=== PATIENT | male | born 1940 | race Caucasian/White ===

== ENCOUNTER 2017-01-14 14:17 | Emergency (ER) | payer MEDICARE, MEDICAID ==
[2017-01-14 14:31] VITALS: BP 126/52
--- OUTSIDE RECORDS SUMMARY | 2017-01-14 15:00 | XMS REPORT | Continuity of Care Document ---
:1940 Author Organization [facility] ([facility]) Address [address] [place] [address] Phone [phone] Care Team Providers Name Role Phone Toni Anderson Primary Care Provider [phone] Source Comments This disclosure is being made pursuant to the Care Everywhere program, applicable federal and state laws, and may not contain all informaitonavailable regarding this patient.[facility] ([facility]) Active Allergies and Adverse Reactions No Known Allergies Current Medications Prescription Sig. Disp. 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 CARDIOVASCULAR PROCEDURES ECHO/MUGA: Echo (Normal EF, Normal Valves) - 08/24/2011 STRESS TESTS: Marcin MPI (EF.51, Large Inferior Scar) - 08/24/2011 S/P AAA repair using bifurcation graft Overview: Formatting of this note may be different from the original. VASCULAR: Carotid Duplex (The Doppler flow velocities within the right internal carotid artery are elevated, consistent with a 50-69% stenosis. The left internal carotid artery is occluded ) - 08/27/2011 Abdominal Ao CTA (stent graft no aneurysm) - 08/27/2011 Carotid Duplex (Moderate Disease in Left ICA, Occluded Right ICA, Vertebral: Bilateral Antegrade Flow, No change from previous study) - 09/17/2012 Hyperlipidemia Hypertension Carotid artery disease Overview: occluded LICA Iliac aneurysm CT (myocardial infarction) Stroke Resolved Problems Problem Noted Date Resolved Date Carotid artery disease 11/10/2015 Most Recent Encounters Date Type Specialty Providers Description 01/10/2017 Office Visit [facility] Carroll Nguyen, Chief Comp: Patient MD Reported Reason For Visit 12/18/2016 Office Visit [facility] Shasha Bullock ARNP Dx: Bilateral carotid artery disease (Primary Dx) 10/16/2016 Office Visit [facility] Lana Cain MD Dx: Hx of CABG (Primary Dx) Immunizations Name Dates Previously Given Next Due Influenza 08/01/2015,07/27/2014,04/23/2013 Pneumococcal Conjugate, PCV13 (Prevnar 13) 08/01/2015 Td, adsorbed 04/23/2013 Social History Tobacco Use Types Packs/Day Years Used Date Current Every Day Smoker Cigarettes 1 Smokeless Tobacco: Never Used Tobacco Cessation:Ready to Quit: No; Counseling Given: Yes Comments: Last Filed Vital Signs Vital Sign Reading Time Taken Blood Pressure 140/80 12/18/2016 10:02 AM CDT Pulse 50 12/18/2016 10:02 AM CDT Temperature 35.1 C (95.2 F) 07/12/2016 2:36 PM CDT Respiratory Rate - - Height 1.829 m (6') 12/18/2016 10:02 AM CDT Weight 82.101 kg (181 lb) 12/18/2016 10:02 AM CDT Body Mass Index 24.54 12/18/2016 10:02 AM CDT Oxygen Saturation - - Plan of Care Date Type Specialty Providers Description 01/18/2017 Appointment [facility] V[facility] Default, Other Billg Chief Comp: Patient - Defo Reported Reason For [address] [place] [address] [phone] (Fax) 07/02/2017 Appointment [facility] Shasha Bullock ARNP Chief Comp: Patient [address] [place] [address] Visit [phone] (Fax) 10/10/2017 Appointment [facility] Lana Cain MD Chief Comp: Patient [address] [place] [address] Visit [phone] (Fax) Health Maintenance Due Date Last Done Comments Hepatitis B Vaccine (1 of 3 - Primary 1940 Series) Tdap Vaccine 1951 Lipid Disorder Screening 1957 Colonoscopy 02/09/1989 Zoster Vaccine 1999 Influenza Vaccine: Seasonal (#1) 05/07/2016 08/01/2015, 07/27/2014, 04/23/2013 Pneumococcal Vaccine (2 of 2 - 08/01/2016 08/01/2015 PPSV23) Td Vaccine 04/23/2023 04/23/2013 Results from Last 3 Months Not on file
--- NOTE | 2017-01-14 15:06 | ERNOTE ---
Lower Extremity HPI - Narrative Date of Service: 01/14/17 - General Lower Extremities Pain: leg: left Time Seen by Provider: 01/14/17 14:52 Source: patient, family, RN notes reviewed Exam Limitations: dementia - Immun/Allergies/Home Medications Immunizations: IMMUNIZATION HX Immunizations Up to Date Yes History of Influenza Vaccine Yes Hx Pneumococcal Vaccination Yes Allergies/Adverse Reactions: Allergies Allergy/AdvReac Type Severity Reaction Status Date / Time No Known Allergies Allergy Verified 01/14/17 14:31 Home Medications: HOME MEDICATIONS Albuterol Sulfate [Proair Hfa] 1 - 2 puff IH Q6H PRN 08/20/13 [Last Taken 20:00] Lisinopril 10 mg PO DAILY 08/20/13 [Last Taken 03/13/15 20:00] Metoprolol Tartrate [Lopressor] 12.5 mg PO DAILY 08/20/13 [Last Taken 03/13/15 20:00] Pravastatin Sodium 20 mg PO HS 08/20/13 [Last Taken 03/13/15 20:00] Sertraline HCl 100 mg PO DAILY 08/20/13 [Last Taken 03/13/15 20:00] Aspirin 81 mg PO DAILY 02/14/16 [Last Taken Unknown] Cephalexin 500 mg PO TID #30 tab 01/14/17 [Last Taken Unknown] - History of Present Illness Narrative: 76 y/o male brought to the ED by a family member for redness and pain in his left leg after being scratched by his cat 2 days ago. This involved the lateral and posterior aspects of the knee. He was also scratched on the lower leg today. This has not become red and is not as painful as the area near the knee. They have been cleaning the wounds with peroxide and applying antibiotic ointment. Date (Duration): 01/12/17 Location of Incident: home Reason for Fall: Reports: other Modifying Factors - (Improves): Denies: rest Modifying Factors - (Worsens): Reports: other - weight bearing and palpation Other Injuries: Reports: none Prior Treament: Denies: recently seen, similar symptoms before Review of Systems - Review of Systems Constitutional: Absent: fever, chills, malaise EYE: Present: no symptoms reported ENT: Present: no symptoms reported Respiratory: Present: no symptoms reported Cardiology: Present: no symptoms reported Gastrointestinal/Abdominal: Absent: nausea, vomiting Genitourinary: Present: no symptoms reported Musculoskeletal: Absent: joint pain, joint swelling Skin: Present: lesions, change in color. Absent: rash, lumps Neurological: Absent: headache, dizziness/light-headedness, weakness, numbness, tingling Endocrine: Present: no symptoms reported Hematologic/Lymphatic: Present: no symptoms reported Psych: Present: other - poor memory (dementia) - Patient's Past Medical History Patient History - Medical: Cataracts, Depression, Other Patient History - Cardiac/Respiratory: Coronary Heart Disease, COPD, CVA/Stroke , Hypertension, Hyperlipidemia, Myocardial Infarction Patient History - Cancer: No Hx of Cancer Patient History - Surgical Procedures: Colonoscopy, Coronary Bypass Surgery, Cardiac stent Patient History - Other: None - Family History Mother Family History - Medical: History Unknown Family History - Cardiac/Respiratory: History Unknown - Social History Living Situations: alone Abuse History: No History of abuse Psych History: Hx of Depression, Current tx/ever been on anti-depressants or anti-anxiety meds Smoking Status: Current every day smoker Have you smoked in the past 12 months: Yes Alcohol Use: none Drug Use: none - Immunizations Immunizations Up to Date: Yes - tetanus in 2016 Hx Pneumococcal Vaccination: Yes History of Influenza Vaccine: Yes Physical Exam - Physical Exam General Appearance: Present: wd/wn, alert, no apparent distress Respiratory: Present: no respiratory distress, normal breath sounds, no accessory muscle use, lungs clear Cardiovascular/Chest: Present: regular rate, rhythm, no murmur, normal peripheral pulses Extremity Exam: Present: normal range of motion, extremity edema - mild to left leg at lateral and posterior aspects of the knee, the joint itself is not edematous. Absent: pedal edema, joint swelling Neurological Exam: Present: alert, oriented, normal mood/affect, no motor/ sensory deficits Skin Exam: Present: warm/dry, other - several small abrasions consistent with cat scratches to left lateral and posterior knee and anterior lower leg, redness and warmth surrounding the wounds near the knee, chronic venous stasis skin changes of both lower legs ED Progress - Vital Signs Patient's Vital Signs:: I have reviewed the patient's vital signs. Vital Signs: Vital Signs 01/14/17 14:22 Temperature 36.6 C Pulse Rate 76 Respiratory 14 Rate Blood Pressure 126/52 O2 Sat by Pulse 96 Oximetry - Progress/Reassessment Chief Complaint: Lower Extremity Pain/ Injury Progress:: Unchanged Plan - Plan Plan: Antibiotics initiated in department with IM Rocephin. Rx given for cephalexin - to start this later this evening. Departure Clinical Impression: Cat scratch of left lower leg Qualifiers: Encounter type: initial encounter Qualified Code(s): S80.812A - Abrasion, left lower leg, initial encounter Cellulitis Qualifiers: Site of cellulitis: extremity Site of cellulitis of extremity: lower extremity Laterality: left Qualified Code(s): L03.116 - Cellulitis of left lower limb - Departure Disposition: Home Follow Up Needed Condition: Good Instructions: Cellulitis, Adult, [id number] Additional Instructions: Elevate leg and use warm moist heat Tylenol for pain Return for fever, vomiting, worsening pain or other symptoms Referrals: Toni Anderson MD [Primary Care Provider] - Prescriptions: Cephalexin 500 mg PO TID #30 tab
== END 2017-01-14 15:50 | disposition home or self-care (01) ==
LOC: ER 14:17
DX: S80.812A Abrasion, left lower leg, initial encounter (principal); L03.116 Cellulitis of left lower limb; F17.210 Nicotine dependence, cigarettes, uncomplicated; W55.03XA Scratched by cat, initial encounter; Y92.009 Unspecified place in unspecified non-institutional (private) residence as the place of occurrence of the external cause; I10 Essential (primary) hypertension; F32.9 Major depressive disorder, single episode, unspecified; E78.5 Hyperlipidemia, unspecified; I50.9 Heart failure, unspecified; J44.9 Chronic obstructive pulmonary disease, unspecified; I25.2 Old myocardial infarction

== ENCOUNTER 2021-01-31 13:26 | Inpatient (IN) ==
--- NOTE | 2021-01-31 14:30 | ERNOTE ---
Trauma/Assault HPI - Narrative Date of Service: 01/31/21 - General Stated Complaint: Fall right side pain Time Seen by Provider: 01/31/21 17:32 Source: patient Exam Limitations: no limitations - Immun/Allergies/Home Medications Immunizations: IMMUNIZATION HX Immunizations Up to Date Yes History of Influenza Vaccine Yes Hx Pneumococcal Vaccination Yes Allergies/Adverse Reactions: Allergies No Known Allergies Allergy (Verified 01/31/21 13:38) Home Medications: HOME MEDICATIONS Aspirin 81 mg PO DAILY 02/14/16 [Last Taken Unknown] lisinopril 10 mg tablet 10 mg PO DAILY #30 tab 11/09/20 [Last Taken Unknown] metoprolol tartrate 25 mg tablet 12.5 mg PO DAILY #15 tab 11/09/20 [Last Taken Unknown] pravastatin 20 mg tablet 20 mg PO HS #30 tab 11/09/20 [Last Taken Unknown] sertraline 100 mg tablet 100 mg PO DAILY #30 tab 11/09/20 [Last Taken Unknown] - History of Present Illness Date (Duration): 01/31/21 Time (Timing): 12:00 Narrative: Daughter brings parent 10 for altered mental status. Daughter went to visit patient today and patient was laying in bed on the close on confused unusual for him. Patient has had strokes in the past and the family was concerned that maybe he had another stroke. Nothing seems to make it better nothing seems to make it worse. Patient does feel warm but denies any fever or chills patient is somewhat confused today which is not normal for him. Location Occurred: Reports: home Pain Location: Reports: none Severity: mild, moderate Modifying Factors - (Worsens): Reports: cold therapy Loss of Consciousness: Reports: no loss of consciousness Associated Symptoms - Trauma: Reports: denies symptoms Review of Systems - Review of Systems Constitutional: Present: no symptoms reported EYE: Present: no symptoms reported ENT: Present: no symptoms reported Respiratory: Present: no symptoms reported Cardiology: Present: no symptoms reported Gastrointestinal/Abdominal: Present: no symptoms reported Genitourinary: Present: no symptoms reported Musculoskeletal: Present: muscle stiffness Skin: Present: no symptoms reported Neurological: Present: no symptoms reported Medical History (Last Reviewed 01/31/21 @ 17:36 by Kennedy Pyle DO) Infected cut of finger (Acute) left index finger Weight loss of more than 10% body weight (Acute) He is lost at least 15 pounds over the past 2 months and has lost about 5 pounds the last week. Abdominal mass, right lower quadrant (Acute) Hypertension (Chronic) COPD (chronic obstructive pulmonary disease) (Chronic) Anxiety (Chronic) Depression (Chronic) CAD (coronary artery disease) (Chronic) CVA (cerebral vascular accident) (Chronic) AAA (abdominal aortic aneurysm) (Chronic) Cataract cataract surgery of bilateral eyes Hernia of abdominal wall Male circumcision repaired as an adult Surgical History: Surgical History (Last Reviewed 01/31/21 @ 17:36 by Kennedy Pyle DO) H/O hernia repair S/P AAA repair Family History: Family History (Last Reviewed 01/31/21 @ 17:36 by Kennedy Pyle DO) Brother , 2 brothers AAA AAA (abdominal aortic aneurysm) Mother Old age Father Old age Social History: (Last Reviewed 01/31/21 @ 17:36 by Kennedy Pyle DO) Social History: chcf: No Marital status: / lives independently: Yes household members: none current occupational status: retired Highest level of school completed/degree received: high school graduate Service: No Tobacco: Smoking Status: Current every day smoker tobacco type: cigarettes Smoking cigarettes per day: 20.0 Smoking packs per day: 1 Alcohol: alcohol intake: current Alcohol type: beer alcohol intake frequency: holiday/special occasion Substance Use: substance use type: does not use Dietary Habits: caffeine: Yes Physical Exam - Physical Exam General Appearance: Present: no apparent distress Head Exam: Present: normal inspection, no evidence of injury Eye Exam: Normal inspection: bilateral, PERRL: bilateral, EOMI: bilateral Ears, Nose, Throat: Present: normal ENT inspection Neck: Present: normal inspection, nontender Respiratory: Present: no respiratory distress, normal breath sounds Cardiovascular/Chest: Present: regular rate, rhythm, no murmur, normal peripheral pulses Peripheral Pulses: N=norm/S=strong/W=weak/B=bound/A=absent: Carotid (R): Normal, Carotid (L): Normal, Radial (R): Normal Gastrointestinal/Abdominal: Present: normal bowel sounds, nontender, nondistended, soft, no organomegaly Back Exam: Present: normal inspection, normal range of motion Extremity Exam: Present: normal inspection, normal range of motion, no edema Neurological Exam: Present: alert, oriented, normal mood/affect, no motor/sensory deficits Skin Exam: Present: normal color, warm/dry Lymphatic Exam: Present: no adenopathy Detailed Trauma Exam Best Eye Response (Gwen): (4) open spontaneously Best Verbal Response (Gwen): (4) confused conversation Best Motor Response (Gwen): (6) obeys commands [place] Total: 14 General Appearance: Present: no acute distress Neurological Exam: Present: oriented x 4 Progress - Results and Orders Patient's Lab Results:: I have reviewed the patient's lab results. - Vital Signs Patient's Vital Signs:: I have reviewed the patient's vital signs. Vital Signs: Vital Signs 01/31/21 13:34 Temperature 36.8 C Pulse Rate 101 H Respiratory Rate 14 Blood Pressure 112/56 O2 Sat by Pulse Oximetry 97 - Progress/Reassessment Chief Complaint: Fall Departure Clinical Impression: Urinary tract infection - Departure Disposition: Still a patient Condition: Good Critical Care Time - Critical Care Critical Time Spent:: Yes
[2021-01-31 14:49] LABS: Hematocrit 34.2 % (42.0-52.0); Hemoglobin 11.4 gm/dL (13.5-18.0); Mean Corpuscular Hemoglobin 31.7 pg (27-31); Mean Corpuscular Hgb Conc 33.3 g/dl (32-36); Mean Platelet Volume 8.5 fl (8-11.3); Platelet Count 183 K/mm3 (150-450); Red Cell Distribution Width 12.5 % (11.5-14.0); White Blood Count 29.5 K/mm3 (4.0-10.5)
[2021-01-31 14:57] LABS: Total Cells Counted 100
[2021-01-31 15:03] LABS: Prothrombin Time (Patient) 15.4 Seconds (9.1-10.7)
[2021-01-31 15:05] LABS: INR 1.51 INR (0.92-1.08)
[2021-01-31 15:07] LABS: Albumin * 2.6 gm/dl (3.4-5.0); Anion Gap 13.3 mmol/L (6.8-13.8); BUN/Creatinine Ratio 17.9 (9.0-21.6); Bilirubin, Total 0.6 mg/dL (0.0-1.1); Ca. Corrected For Albumin 8.7 mg/dL (8.4-10.2); Calcium * 7.9 mg/dL (7.9-10.9); Carbon Dioxide 24.5 mmol/L (24-32.6); Potassium 3.8 mmol/L (3.4-4.6); Total Protein 6.7 gm/dL (6.2-8.2)
[2021-01-31 15:16] LABS: Band 11 % (0-2.0); Lymphocyte 4 % (20-51); Monocyte 1 % (0-9); Neutrophil 84 % (42-75); Neutrophil # 24.8 K/mm3 (1.3-6.0)
[2021-01-31 15:18] LABS: Platelet Estimate Normal (NORMAL); RBC Morphology Normal (NORMAL)
[2021-01-31 16:00] LABS: Urine Bilirubin 1 mg/dl (NEGATIVE); Urine Blood 250 /ul (NEGATIVE); Urine Ketone Negative (NEGATIVE); Urine Protein 100 mg/dL (NEGATIVE); Urine Specific Gravity >=1.030 SP.GR. (1.005-1.030); Urine Urobilinogen Normal (NORMAL)
[2021-01-31 16:12] LABS: Urine Appearance Cloudy (CLEAR); Urine Color Dark Yellow; Urine Nitrite Positive (NEGATIVE)
[2021-01-31 16:13] LABS: Urine Bacteria 4+
[2021-01-31] MEDS ORDERED: cefTRIAXone SODIUM 2,000 MG/100 ML BAG IV ONE (16:17)
[2021-01-31] MEDS ORDERED: NORMAL SALINE 1,000 ML IV PRN (16:39)
[2021-01-31] MEDS ORDERED: ACETAMINOPHEN 1,000 MG/100 ML BTL IV ONE (18:30)
[2021-01-31] MEDS ORDERED: ONDANSETRON HCL/PF 2 MG/ML VIAL IV ONE (18:31)
[2021-01-31] MEDS ORDERED: ONDANSETRON HCL/PF 2 MG/ML VIAL ONE (18:32)
[2021-01-31] MEDS ORDERED: ACETAMINOPHEN 325 MG TABLET PO PRN (18:38)
[2021-01-31] MEDS ORDERED: ONDANSETRON HCL/PF 2 MG/ML VIAL IV PRN (18:38)
[2021-01-31] MEDS: NORMAL SALINE 1,000 ML IV SCH (20:18)
[2021-01-31] MEDS: SIMVASTATIN 10 MG TABLET PO SCH (21:01)
[2021-01-31] MEDS: VANCOMYCIN HCL 1 GM in DEXTROSE 5 % IN WATER 250 ML IV SCH ×2 (21:02)
--- NOTE | 2021-01-31 23:54 | HP ---
Chief Complaint - Chief Complaint Date of Service: 01/31/21 Time of Service: 18:35 Chief Complaint: Altered mental status, leukocytosis, febrile History of Present Illness: 80-year-old male with history of CVA and mild cognitive deficits, CAD, COPD, depression presented to the ER with his daughter after being found altered in his home. Initial lab work showed him to have a white count of 29.5 which was normal on 01/13/2021 at 8.7. Patient had an elevated creatinine from baseline at 1.84 and a GFR 38. Patient lactic acid was positive at 2.9. Patient's procalcitonin came back at 2.26. Patient's urine was positive for nitrates and leukocyte esterase. Urine cultures and blood cultures pending. Due to altered mentation patient had head CT which showed likely chronic fairly extensive left- sided infarcts, atrophy, and white matter microvascular ischemic disease which are likely at baseline from previous CVA. Patient has no other neurological deficits aside from being altered. Abdominal CT scan had benign findings but nothing to account for any issues days currently having or any acute processes. Chest x-ray showed no acute cardiopulmonary issues. Patient initially was febrile in the ER and he had an elevated pulse at 101. His blood pressure and respirations and oxygen saturations have all been within normal limits though. Patient was given a dose of Rocephin and vancomycin and admitted to the floor under observation for altered mental status secondary to UTI. Patient is septic but is otherwise maintaining pressures. Concern for bacteremia. Otherwise patient feels well and is very pleasantly confused. Medical History (Last Reviewed 01/31/21 @ 19:48 by Tea Crespo RN) Infected cut of finger (Acute) left index finger Weight loss of more than 10% body weight (Acute) He is lost at least 15 pounds over the past 2 months and has lost about 5 pounds the last week. Abdominal mass, right lower quadrant (Acute) Hypertension (Chronic) COPD (chronic obstructive pulmonary disease) (Chronic) Anxiety (Chronic) Depression (Chronic) CAD (coronary artery disease) (Chronic) CVA (cerebral vascular accident) (Chronic) AAA (abdominal aortic aneurysm) (Chronic) Cataract cataract surgery of bilateral eyes Hernia of abdominal wall Male circumcision repaired as an adult Surgical History: Surgical History (Last Reviewed 01/31/21 @ 19:48 by Tea Crespo RN) H/O hernia repair S/P AAA repair Family History: Family History (Last Reviewed 01/31/21 @ 19:48 by Tea Crespo RN) Brother , 2 brothers AAA AAA (abdominal aortic aneurysm) Mother Old age Father Old age Social History: (Last Reviewed 01/31/21 @ 19:49 by Tea Crespo RN) Social History: retirement: No Marital status: / lives independently: Yes household members: none current occupational status: retired Highest level of school completed/degree received: high school graduate Service: No Tobacco: Smoking Status: Current every day smoker tobacco type: cigarettes Smoking cigarettes per day: 20.0 Smoking packs per day: 1 Alcohol: alcohol intake: current Alcohol type: beer alcohol intake frequency: holiday/special occasion Substance Use: substance use type: does not use Dietary Habits: caffeine: Yes Review Of Systems (GEN) - Review of Systems Additional Comments: Patient denies any issues (negative review of systems) whatsoever, unsure of how much he is able to cognitively understand questioning. Immunizations: IMMUNIZATION HX Immunizations Up to Date Yes History of Influenza Vaccine Yes Hx Pneumococcal Vaccination Yes Allergies/Adverse Reactions: Allergies Allergy/AdvReac Type Severity Reaction Status Date / Time No Known Allergies Allergy Verified 01/31/21 13:38 Home Medications: HOME MEDICATIONS Aspirin 81 mg PO DAILY 02/14/16 [Last Taken Unknown] lisinopril 10 mg tablet 10 mg PO DAILY #30 tab 11/09/20 [Last Taken Unknown] metoprolol tartrate 25 mg tablet 12.5 mg PO DAILY #15 tab 11/09/20 [Last Taken Unknown] pravastatin 20 mg tablet 20 mg PO HS #30 tab 11/09/20 [Last Taken Unknown] sertraline 100 mg tablet 100 mg PO DAILY #30 tab 11/09/20 [Last Taken Unknown] Exam - Exam Vital Signs: Vital Signs - Last Taken Temp 37.0 C 01/31/21 22:57 Pulse 68 01/31/21 22:57 Resp 18 01/31/21 22:57 BP 110/47 01/31/21 22:57 Pulse Ox 94 01/31/21 22:57 Constitutional: Present: Alert, No distress, Elderly. Absent: Oriented x3 - X2 ENT Exam: Present: hard of hearing Eye Exam: bilateral eye: normal inspection Neck: Present: non-tender, supple Back Exam: Present: no CVA tenderness Respiratory: Present: lungs clear, normal breath sounds Cardiovascular/Chest: Present: regular rate, rhythm, no murmur Peripheral Pulses: dorsalis-pedis (R): 2+, dorsalis-pedis (L): 2+ Abdomen: Present: soft, nontender, nondistended. Absent: tender, guarding, rigidity, rebound tenderness, CVA tenderness, suprapubic tenderness Extremity: Present: non-tender, normal capillary refill. Absent: lower extremity edema Skin Exam: Present: diaphoresis. Absent: mottled, pallor Neurologic: Absent: facial droop, motor weakness, sensory deficit Appearance: Present: impaired insight, impaired recent memory Eye contact: Present: cooperative, good eye contact, normal speech Thoughts: Present: normal thought pattern, normal mood /affect Diagnostic Studies: Abnormal Lab Results 01/31/21 01/31/21 01/31/21 Range/Units 14:35 14:35 14:35 WBC 29.5 H (4.0-10.5) K/mm3 RBC 3.60 L (4.7-6.0) M/mm3 Hgb 11.4 L (13.5-18.0) gm/dL Hct 34.2 L (42.0-52.0) % MCH 31.7 H (27-31) pg Neutrophils % (Manual) 84 H (42-75) % Band Neuts % (Manual) 11 H (0-2.0) % Lymphocytes % (Manual) 4 L (20-51) % Neutrophils # (Manual) 24.8 H (1.3-6.0) K/mm3 Lymphocytes # (Manual) 1.2 L (1.5-3.5) k/mm3 ESR 81 H (0-10) mm/hr PT (9.1-10.7) Seconds INR (Anticoag Therapy) (0.92-1.08) INR BUN 33 H D (6-23) mg/dL Creatinine 1.84 H D (0.4-1.4) mg/dL Est GFR (Non-Af Amer) 38 L D (60-130) mL/min Random Glucose 185 H (70-110) mg/dL Lactic Acid, Venous (0.4-2.0) mmol/L ALT 18 L (19-67) U/L Albumin 2.6 L (3.4-5.0) gm/dl Procalcitonin (0.05-0.50) ng/mL Urine Protein (NEGATIVE) mg/dL Urine Blood (NEGATIVE) /ul Urine Nitrate (NEGATIVE) Urine Bilirubin (NEGATIVE) mg/dl Ur Leukocyte Esterase (NEGATIVE) /ul Urine RBC (0-5) /hpf Urine WBC (0-5) /hpf Urine Bacteria (NONE) 01/31/21 01/31/21 01/31/21 Range/Units 14:35 14:35 14:35 WBC (4.0-10.5) K/mm3 RBC (4.7-6.0) M/mm3 Hgb (13.5-18.0) gm/dL Hct (42.0-52.0) % MCH (27-31) pg Neutrophils % (Manual) (42-75) % Band Neuts % (Manual) (0-2.0) % Lymphocytes % (Manual) (20-51) % Neutrophils # (Manual) (1.3-6.0) K/mm3 Lymphocytes # (Manual) (1.5-3.5) k/mm3 ESR (0-10) mm/hr PT 15.4 H (9.1-10.7) Seconds INR (Anticoag Therapy) 1.51 H (0.92-1.08) INR BUN (6-23) mg/dL Creatinine (0.4-1.4) mg/dL Est GFR (Non-Af Amer) (60-130) mL/min Random Glucose (70-110) mg/dL Lactic Acid, Venous 2.9 H* (0.4-2.0) mmol/L ALT (19-67) U/L Albumin (3.4-5.0) gm/dl Procalcitonin 2.26 H (0.05-0.50) ng/mL Urine Protein (NEGATIVE) mg/dL Urine Blood (NEGATIVE) /ul Urine Nitrate (NEGATIVE) Urine Bilirubin (NEGATIVE) mg/dl Ur Leukocyte Esterase (NEGATIVE) /ul Urine RBC (0-5) /hpf Urine WBC (0-5) /hpf Urine Bacteria (NONE) 01/31/21 01/31/21 Range/Units 15:20 17:00 WBC (4.0-10.5) K/mm3 RBC (4.7-6.0) M/mm3 Hgb (13.5-18.0) gm/dL Hct (42.0-52.0) % MCH (27-31) pg Neutrophils % (Manual) (42-75) % Band Neuts % (Manual) (0-2.0) % Lymphocytes % (Manual) (20-51) % Neutrophils # (Manual) (1.3-6.0) K/mm3 Lymphocytes # (Manual) (1.5-3.5) k/mm3 ESR (0-10) mm/hr PT (9.1-10.7) Seconds INR (Anticoag Therapy) (0.92-1.08) INR BUN (6-23) mg/dL Creatinine (0.4-1.4) mg/dL Est GFR (Non-Af Amer) (60-130) mL/min Random Glucose (70-110) mg/dL Lactic Acid, Venous 2.4 H* (0.4-2.0) mmol/L ALT (19-67) U/L Albumin (3.4-5.0) gm/dl Procalcitonin (0.05-0.50) ng/mL Urine Protein 100 H (NEGATIVE) mg/dL Urine Blood 250 H (NEGATIVE) /ul Urine Nitrate Positive H (NEGATIVE) Urine Bilirubin 1 H (NEGATIVE) mg/dl Ur Leukocyte Esterase 75 H (NEGATIVE) /ul Urine RBC 10-25 H (0-5) /hpf Urine WBC 5-10 H (0-5) /hpf Urine Bacteria 4+ H (NONE) Laboratory Results WBC 29.5 K/mm3 (4.0-10.5) H 01/31/21 14:35 RBC 3.60 M/mm3 (4.7-6.0) L 01/31/21 14:35 Hgb 11.4 gm/dL (13.5-18.0) L 01/31/21 14:35 Hct 34.2 % (42.0-52.0) L 01/31/21 14:35 MCV 95.0 fl (78-100) 01/31/21 14:35 MCH 31.7 pg (27-31) H 01/31/21 14:35 MCHC 33.3 g/dl (32-36) 01/31/21 14:35 RDW 12.5 % (11.5-14.0) 01/31/21 14:35 Plt Count 183 K/mm3 (150-450) 01/31/21 14:35 MPV 8.5 fl (8-11.3) 01/31/21 14:35 Neutrophils % (Manual) 84 % (42-75) H 01/31/21 14:35 Band Neuts % (Manual) 11 % (0-2.0) H 01/31/21 14:35 Lymphocytes % (Manual) 4 % (20-51) L 01/31/21 14:35 Monocytes % (Manual) 1 % (0-9) 01/31/21 14:35 Neutrophils # (Manual) 24.8 K/mm3 (1.3-6.0) H 01/31/21 14:35 Lymphocytes # (Manual) 1.2 k/mm3 (1.5-3.5) L 01/31/21 14:35 Monocytes # (Manual) 0.3 k/mm3 (0.0-1.0) 01/31/21 14:35 Platelet Estimate Normal (NORMAL) 01/31/21 14:35 RBC Morphology Normal (NORMAL) 01/31/21 14:35 ESR 81 mm/hr (0-10) H 01/31/21 14:35 PT 15.4 Seconds (9.1-10.7) H 01/31/21 14:35 INR (Anticoag Therapy) 1.51 INR (0.92-1.08) H 01/31/21 14:35 Sodium 138 mmol/L (132-142) 01/31/21 14:35 Plasma Sodium 139 mmol/L (130-142) 01/31/21 14:35 Potassium 3.8 mmol/L (3.4-4.6) 01/31/21 14:35 Chloride 104 mmol/L (97-106) 01/31/21 14:35 Carbon Dioxide 24.5 mmol/L (24-32.6) 01/31/21 14:35 Anion Gap 13.3 mmol/L (6.8-13.8) 01/31/21 14:35 BUN 33 mg/dL (6-23) H D 01/31/21 14:35 Creatinine 1.84 mg/dL (0.4-1.4) H D 01/31/21 14:35 Est GFR (Non-Af Amer) 38 mL/min (60-130) L D 01/31/21 14:35 BUN/Creatinine Ratio 17.9 (9.0-21.6) 01/31/21 14:35 Random Glucose 185 mg/dL (70-110) H 01/31/21 14:35 Lactic Acid, Venous 0.8 mmol/L (0.4-2.0) 01/31/21 21:06 Calcium 7.9 mg/dL (7.9-10.9) 01/31/21 14:35 Calcium Adj for Albumin 8.7 mg/dL (8.4-10.2) 01/31/21 14:35 Total Bilirubin 0.6 mg/dL (0.0-1.1) 01/31/21 14:35 AST 14 U/L (0-48) 01/31/21 14:35 ALT 18 U/L (19-67) L 01/31/21 14:35 Alkaline Phosphatase 84 U/L (50-170) 01/31/21 14:35 Troponin I 0.030 ng/mL (0.00-0.10) 01/31/21 14:35 Total Protein 6.7 gm/dL (6.2-8.2) 01/31/21 14:35 Albumin 2.6 gm/dl (3.4-5.0) L 01/31/21 14:35 Procalcitonin 2.26 ng/mL (0.05-0.50) H 01/31/21 14:35 Urine Color Dark yellow 01/31/21 15:20 Urine Appearance Cloudy (CLEAR) 01/31/21 15:20 Urine pH 5.0 pH (5.0-7.0) 01/31/21 15:20 Ur Specific [place] >=1.030 SP.GR. (1.005-1.030) 01/31/21 15:20 Urine Protein 100 mg/dL (NEGATIVE) H 01/31/21 15:20 Urine Glucose (UA) Negative mg/dL (NEGATIVE) 01/31/21 15:20 Urine Ketones Negative mg/dL (NEGATIVE) 01/31/21 15:20 Urine Blood 250 /ul (NEGATIVE) H 01/31/21 15:20 Urine Nitrate Positive (NEGATIVE) H 01/31/21 15:20 Urine Bilirubin 1 mg/dl (NEGATIVE) H 01/31/21 15:20 Urine Urobilinogen Normal EU/dl (NORMAL) 01/31/21 15:20 Ur Leukocyte Esterase 75 /ul (NEGATIVE) H 01/31/21 15:20 Urine RBC 10-25 /hpf (0-5) H 01/31/21 15:20 Urine WBC 5-10 /hpf (0-5) H 01/31/21 15:20 Ur Epithelial Cells 0-5 /hpf (0-5) 01/31/21 15:20 Urine Bacteria 4+ (NONE) H 01/31/21 15:20 Urine Culture Comments Culture to follow 01/31/21 15:20 SARS-CoV-2 (PCR) Not detected (NotDetected) 01/31/21 17:02 Assessment/Plan - Narrative Narrative: Patient is a very pleasant 80-year-old male with history of CVA with chronic cognitive deficits though mild who was admitted under observation for UTI and leukocytosis. Patient is definitely septic from presentation including febrile, tachycardic, elevated white count, urinary tract infection, and altered mentation. Patient was given 2 g of Rocephin in the ER as well as a dose of vancomycin. Blood cultures and urine cultures are pending. Tylenol ordered for fevers. We will continue antibiotics until preliminary report returns for his cultures. Will adjust antibiotics as needed at that point. PT, OT, and speech therapy ordered. SCDs to be worn while in bed. Restarted home medications for his CAD, hypertension, hyperlipidemia, and depression/anxiety. Zofran ordered for nausea. Patient started on regular diet. Nurse will call questions or concerns. 1 hour critical care time spent with patient during evaluation, review of history, development of treatment plan, and dictation of this note. - Assessment/Plan (1) Urinary tract infection Problem: Acute (2) Sepsis Problem: Acute (3) Leukocytosis Problem: Acute (4) Febrile Problem: Acute (5) Hypertension Problem: Chronic Qualifiers: Hypertension type: essential hypertension Qualified Code(s): I10 - Essential (primary) hypertension (6) CVA (cerebral vascular accident) Problem: Chronic Qualifiers: CVA mechanism: embolism Precerebral and cerebral artery: unspecified precerebral artery Qualified Code(s): I63.10 - Cerebral infarction due to embolism of unspecified precerebral artery
[2021-02-01] MEDS: NORMAL SALINE 1,000 ML IV SCH (05:31)
[2021-02-01 06:46] LABS: Hematocrit 33.2 % (42.0-52.0); Hemoglobin 11.1 gm/dL (13.5-18.0); Mean Cell Volume 94.6 fl (78-100); Mean Corpuscular Hemoglobin 31.6 pg (27-31); Mean Corpuscular Hgb Conc 33.4 g/dl (32-36); Mean Platelet Volume 8.6 fl (8-11.3); Platelet Count 208 K/mm3 (150-450); Red Blood Count 3.51 M/mm3 (4.7-6.0); Red Cell Distribution Width 12.7 % (11.5-14.0); White Blood Count 28.1 K/mm3 (4.0-10.5)
[2021-02-01 06:53] LABS: Albumin * 2.4 gm/dl (3.4-5.0); Anion Gap 12.6 mmol/L (6.8-13.8); BUN/Creatinine Ratio 20.1 (9.0-21.6); Bilirubin, Total 0.5 mg/dL (0.0-1.1); Potassium 3.6 mmol/L (3.4-4.6); Total Protein 6.3 gm/dL (6.2-8.2)
[2021-02-01 06:56] LABS: Total Cells Counted 100
[2021-02-01] MEDS: VANCOMYCIN HCL 1 GM in DEXTROSE 5 % IN WATER 250 ML IV SCH ×2 (07:19)
[2021-02-01 07:30] LABS: Band 1 % (0-2.0); Lymphocyte 1 % (20-51); Monocyte 1 % (0-9); Neutrophil 97 % (42-75); Neutrophil # 27.3 K/mm3 (1.3-6.0); Platelet Estimate Normal (NORMAL); RBC Morphology Normal (NORMAL)
[2021-02-01] MEDS: SERTRALINE HCL 100 MG TABLET PO SCH (09:16)
[2021-02-01] MEDS: ASPIRIN 81 MG TAB.CHEW PO SCH (09:48)
[2021-02-01] MEDS: METOPROLOL TARTRATE 25 MG TABLET PO SCH (09:53)
[2021-02-01] MEDS: LISINOPRIL 10 MG TABLET PO SCH (09:54)
--- NOTE | 2021-02-01 10:20 | PN ---
Subjective - Date and Time Seen Date: 02/01/21 Time: 10:15 Subjective Narrative: Patient still pleasantly confused though is not in any acute distress. Working with therapy, able to ambulate this morning. Speech therapy did well. Patient white count still high but came down from 29.5-28.1. Patient has been febrile off and on throughout the night. The rest of his vital signs been stable. Preliminary cultures came back growing gram-negative bacilli in his blood as well in his urine. Vancomycin discontinued. Patient made inpatient. Objective Objective Narrative: Again patient with difficulty answering questions appropriately. Patient denies nausea or vomiting, abdominal pain, or any other discomfort. Rest of the review of systems was negative though again questioning his mentation at this time. Patient is pleasant and appropriate otherwise. - Vitals Vitals: Last Vital Signs Temp 37.1 C 02/01/21 07:35 Pulse 75 02/01/21 09:54 Resp 18 02/01/21 09:58 BP 96/52 02/01/21 09:54 Pulse Ox 91 L 02/01/21 07:35 - Abnormal Lab Findings Abnormal Lab Findings: Abnormal Lab Results 01/31/21 01/31/21 01/31/21 Range/Units 14:35 14:35 14:35 WBC 29.5 H (4.0-10.5) K/mm3 RBC 3.60 L (4.7-6.0) M/mm3 Hgb 11.4 L (13.5-18.0) gm/dL Hct 34.2 L (42.0-52.0) % MCH 31.7 H (27-31) pg Neutrophils % (Manual) 84 H (42-75) % Band Neuts % (Manual) 11 H (0-2.0) % Lymphocytes % (Manual) 4 L (20-51) % Neutrophils # (Manual) 24.8 H (1.3-6.0) K/mm3 Lymphocytes # (Manual) 1.2 L (1.5-3.5) k/mm3 ESR 81 H (0-10) mm/hr PT (9.1-10.7) Seconds INR (Anticoag Therapy) (0.92-1.08) INR Carbon Dioxide (24-32.6) mmol/L BUN 33 H D (6-23) mg/dL Creatinine 1.84 H D (0.4-1.4) mg/dL Est GFR (Non-Af Amer) 38 L D (60-130) mL/min Random Glucose 185 H (70-110) mg/dL Lactic Acid, Venous (0.4-2.0) mmol/L ALT 18 L (19-67) U/L Albumin 2.6 L (3.4-5.0) gm/dl Procalcitonin (0.05-0.50) ng/mL Urine Protein (NEGATIVE) mg/dL Urine Blood (NEGATIVE) /ul Urine Nitrate (NEGATIVE) Urine Bilirubin (NEGATIVE) mg/dl Ur Leukocyte Esterase (NEGATIVE) /ul Urine RBC (0-5) /hpf Urine WBC (0-5) /hpf Urine Bacteria (NONE) 01/31/21 01/31/21 01/31/21 Range/Units 14:35 14:35 14:35 WBC (4.0-10.5) K/mm3 RBC (4.7-6.0) M/mm3 Hgb (13.5-18.0) gm/dL Hct (42.0-52.0) % MCH (27-31) pg Neutrophils % (Manual) (42-75) % Band Neuts % (Manual) (0-2.0) % Lymphocytes % (Manual) (20-51) % Neutrophils # (Manual) (1.3-6.0) K/mm3 Lymphocytes # (Manual) (1.5-3.5) k/mm3 ESR (0-10) mm/hr PT 15.4 H (9.1-10.7) Seconds INR (Anticoag Therapy) 1.51 H (0.92-1.08) INR Carbon Dioxide (24-32.6) mmol/L BUN (6-23) mg/dL Creatinine (0.4-1.4) mg/dL Est GFR (Non-Af Amer) (60-130) mL/min Random Glucose (70-110) mg/dL Lactic Acid, Venous 2.9 H* (0.4-2.0) mmol/L ALT (19-67) U/L Albumin (3.4-5.0) gm/dl Procalcitonin 2.26 H (0.05-0.50) ng/mL Urine Protein (NEGATIVE) mg/dL Urine Blood (NEGATIVE) /ul Urine Nitrate (NEGATIVE) Urine Bilirubin (NEGATIVE) mg/dl Ur Leukocyte Esterase (NEGATIVE) /ul Urine RBC (0-5) /hpf Urine WBC (0-5) /hpf Urine Bacteria (NONE) 01/31/21 01/31/21 02/01/21 Range/Units 15:20 17:00 06:30 WBC 28.1 H (4.0-10.5) K/mm3 RBC 3.51 L (4.7-6.0) M/mm3 Hgb 11.1 L (13.5-18.0) gm/dL Hct 33.2 L (42.0-52.0) % MCH 31.6 H (27-31) pg Neutrophils % (Manual) 97 H (42-75) % Band Neuts % (Manual) (0-2.0) % Lymphocytes % (Manual) 1 L (20-51) % Neutrophils # (Manual) 27.3 H (1.3-6.0) K/mm3 Lymphocytes # (Manual) 0.3 L (1.5-3.5) k/mm3 ESR (0-10) mm/hr PT (9.1-10.7) Seconds INR (Anticoag Therapy) (0.92-1.08) INR Carbon Dioxide (24-32.6) mmol/L BUN (6-23) mg/dL Creatinine (0.4-1.4) mg/dL Est GFR (Non-Af Amer) (60-130) mL/min Random Glucose (70-110) mg/dL Lactic Acid, Venous 2.4 H* (0.4-2.0) mmol/L ALT (19-67) U/L Albumin (3.4-5.0) gm/dl Procalcitonin (0.05-0.50) ng/mL Urine Protein 100 H (NEGATIVE) mg/dL Urine Blood 250 H (NEGATIVE) /ul Urine Nitrate Positive H (NEGATIVE) Urine Bilirubin 1 H (NEGATIVE) mg/dl Ur Leukocyte Esterase 75 H (NEGATIVE) /ul Urine RBC 10-25 H (0-5) /hpf Urine WBC 5-10 H (0-5) /hpf Urine Bacteria 4+ H (NONE) 02/01/21 Range/Units 06:30 WBC (4.0-10.5) K/mm3 RBC (4.7-6.0) M/mm3 Hgb (13.5-18.0) gm/dL Hct (42.0-52.0) % MCH (27-31) pg Neutrophils % (Manual) (42-75) % Band Neuts % (Manual) (0-2.0) % Lymphocytes % (Manual) (20-51) % Neutrophils # (Manual) (1.3-6.0) K/mm3 Lymphocytes # (Manual) (1.5-3.5) k/mm3 ESR (0-10) mm/hr PT (9.1-10.7) Seconds INR (Anticoag Therapy) (0.92-1.08) INR Carbon Dioxide 23.0 L (24-32.6) mmol/L BUN 31 H (6-23) mg/dL Creatinine 1.54 H (0.4-1.4) mg/dL Est GFR (Non-Af Amer) 46 L D (60-130) mL/min Random Glucose 124 H D (70-110) mg/dL Lactic Acid, Venous (0.4-2.0) mmol/L ALT 16 L (19-67) U/L Albumin 2.4 L (3.4-5.0) gm/dl Procalcitonin (0.05-0.50) ng/mL Urine Protein (NEGATIVE) mg/dL Urine Blood (NEGATIVE) /ul Urine Nitrate (NEGATIVE) Urine Bilirubin (NEGATIVE) mg/dl Ur Leukocyte Esterase (NEGATIVE) /ul Urine RBC (0-5) /hpf Urine WBC (0-5) /hpf Urine Bacteria (NONE) - Exam Constitutional: Present: Alert, Cooperative, Elderly. Absent: Oriented x3 - X2 ENT Exam: Present: hard of hearing Respiratory: Present: lungs clear, normal breath sounds, no respiratory distress Cardiovascular/Chest: Present: regular rate, rhythm, no murmur Abdomen: Present: soft, nontender. Absent: tender, guarding, rigidity, rebound tenderness, CVA tenderness, suprapubic tenderness Extremity: Present: no pedal edema, no calf tenderness Skin Exam: Present: normal color, diaphoresis. Absent: pallor Appearance: Present: impaired insight, impaired recent memory Eye contact: Present: cooperative, good eye contact Thoughts: Present: normal mood /affect Assessment/Plan Plan Narrative: Patient with sepsis secondary to UTI. Patient now bacteremic. Both blood and urine cultures growing out the same bug. Should be sensitive to Rocephin, waiting for speciation. Discontinued vancomycin. Repeat CBC and CMP in the morning. Creatinine and GFR improved and is close to baseline. Patient is on normal saline at this time, will monitor fluid status. Patient switched to inpatient due to severity of his infection. Patient is stable though and claims to feel well and is not in any acute distress at this time. His vital signs are stable other than him being febrile off and on throughout the night. No sign of vascular compromise or respiratory distress. We will continue IV antibiotics, trend white count, monitor vitals. Restarted the rest of his home medications for his hypertension, hyperlipi demia/CAD, depression/anxiety. Continue to work with PT, OT, and speech therapy. Overall the patient is stable and has no complaints at this time. SCDs to be worn while in bed. Nurse to call with any questions or concerns. - Problems/Diagnosis (1) Urinary tract infection Problem: Acute (2) Sepsis Problem: Acute (3) Leukocytosis Problem: Acute (4) Febrile Problem: Acute (5) Hypertension Problem: Chronic Qualifiers: Hypertension type: essential hypertension Qualified Code(s): I10 - Essential (primary) hypertension (6) CVA (cerebral vascular accident) Problem: Chronic Qualifiers: CVA mechanism: embolism Precerebral and cerebral artery: unspecified precerebral artery Qualified Code(s): I63.10 - Cerebral infarction due to embolism of unspecified precerebral artery
[2021-02-01] MEDS: NORMAL SALINE 1,000 ML IV PRN (13:43)
[2021-02-01] MEDS: SIMVASTATIN 10 MG TABLET PO SCH (20:34)
[2021-02-01] MEDS ORDERED: VANCOMYCIN/WATER FOR INJ (PEG) 1 GM/200 ML BAG IV SCH (21:00)
[2021-02-02] MEDS: NORMAL SALINE 1,000 ML IV PRN ×3 (01:01→17:21)
[2021-02-02 06:28] LABS: Hematocrit 33.1 % (42.0-52.0); Hemoglobin 11.1 gm/dL (13.5-18.0); Mean Cell Volume 94.8 fl (78-100); Mean Corpuscular Hemoglobin 31.8 pg (27-31); Mean Corpuscular Hgb Conc 33.5 g/dl (32-36); Mean Platelet Volume 8.6 fl (8-11.3); Neutrophil % 87.2 % (42-75.0); Platelet Count 157 K/mm3 (150-450); Red Blood Count 3.49 M/mm3 (4.7-6.0); Red Cell Distribution Width 12.5 % (11.5-14.0); White Blood Count 19.5 K/mm3 (4.0-10.5)
[2021-02-02 06:39] LABS: Anion Gap 14.1 mmol/L (6.8-13.8); BUN/Creatinine Ratio 21.3 (9.0-21.6); Bilirubin, Total 0.4 mg/dL (0.0-1.1); Ca. Corrected For Albumin 9.1 mg/dL (8.4-10.2); Calcium * 7.8 mg/dL (7.9-10.9); Carbon Dioxide 21.4 mmol/L (24-32.6); Potassium 3.5 mmol/L (3.4-4.6); Total Protein 5.9 gm/dL (6.2-8.2)
[2021-02-02] MEDS: METOPROLOL TARTRATE 25 MG TABLET PO SCH (08:34)
[2021-02-02] MEDS: SERTRALINE HCL 100 MG TABLET PO SCH (08:35)
[2021-02-02] MEDS: LISINOPRIL 10 MG TABLET PO SCH (08:35)
[2021-02-02] MEDS: ASPIRIN 81 MG TAB.CHEW PO SCH (08:35)
[2021-02-02] MEDS: SIMVASTATIN 10 MG TABLET PO SCH (20:44)
--- NOTE | 2021-02-02 22:32 | PN ---
Subjective - Date and Time Seen Date: 02/02/21 Time: 20:30 Subjective Narrative: Juventino reports feeling better. No concerns. WBC is trending down, but still elevated. Cultures positive. He denies fever, chills, nausea, and vomiting. He reports thinking more clearly. Objective - Vitals Vitals: Last Vital Signs Temp 36.6 C 02/02/21 18:56 Pulse 87 02/02/21 18:56 Resp 16 02/02/21 18:56 BP 142/67 02/02/21 18:56 Pulse Ox 94 02/02/21 18:56 - Abnormal Lab Findings Abnormal Lab Findings: Abnormal Lab Results 02/02/21 02/02/21 Range/Units 06:20 06:20 WBC 19.5 H D (4.0-10.5) K/mm3 RBC 3.49 L (4.7-6.0) M/mm3 Hgb 11.1 L (13.5-18.0) gm/dL Hct 33.1 L (42.0-52.0) % MCH 31.8 H (27-31) pg Immature Gran % (Auto) 1.60 H (0.001-0.429) % Immature Gran # (Auto) 0.31 H (0.000-0.0310) K/mm3 Neutrophils % 87.2 H (42-75.0) % Lymphocytes % 3.5 L (20-51) % Neutrophils # 17.0 H (1.3-6.0) K/mm3 Lymphocytes # 0.68 L (1.5-3.5) k/mm3 Monocytes # 1.5 H (0.0-1.0) k/mm3 Carbon Dioxide 21.4 L (24-32.6) mmol/L Anion Gap 14.1 H (6.8-13.8) mmol/L BUN 27 H (6-23) mg/dL Est GFR (Non-Af Amer) 58 L D (60-130) mL/min Calcium 7.8 L (7.9-10.9) mg/dL ALT 16 L (19-67) U/L Total Protein 5.9 L (6.2-8.2) gm/dL Albumin 2.0 L (3.4-5.0) gm/dl - Exam Constitutional: Present: Alert, Oriented x3, Cooperative ENT Exam: Present: hearing grossly normal Respiratory: Present: lungs clear, normal breath sounds Cardiovascular/Chest: Present: regular rate, rhythm, no murmur Abdomen: Present: Normal bowel sounds, soft, nontender, nondistended Skin Exam: Present: normal color, warm/dry, no cyanosis Assessment/Plan Plan Narrative: Sepsis secondary to UTI. Positive urine culture and blood culture. WBC is trending down on rocephin and clinically he is improving. Will continue rocephin without change. Awaiting sensitivities from cultures. No change in treatment at this time. - Problems/Diagnosis (1) Sepsis Problem: Acute (2) Urinary tract infection Problem: Acute
[2021-02-03] MEDS: NORMAL SALINE 1,000 ML IV PRN ×2 (01:49→09:51)
[2021-02-03] MEDS: ASPIRIN 81 MG TAB.CHEW PO SCH (09:06)
[2021-02-03] MEDS: LISINOPRIL 10 MG TABLET PO SCH (09:06)
[2021-02-03] MEDS: SERTRALINE HCL 100 MG TABLET PO SCH (09:06)
[2021-02-03] MEDS: METOPROLOL TARTRATE 25 MG TABLET PO SCH (09:06)
[2021-02-03 09:22] LABS: Hematocrit 36.3 % (42.0-52.0); Hemoglobin 12.1 gm/dL (13.5-18.0); Mean Corpuscular Hemoglobin 31.3 pg (27-31); Mean Corpuscular Hgb Conc 33.3 g/dl (32-36); Mean Platelet Volume 9.1 fl (8-11.3); Neutrophil # 10.1 K/mm3 (1.3-6.0); Neutrophil % 82.4 % (42-75.0); Platelet Count 177 K/mm3 (150-450); Red Blood Count 3.86 M/mm3 (4.7-6.0); Red Cell Distribution Width 12.4 % (11.5-14.0); White Blood Count 12.3 K/mm3 (4.0-10.5)
[2021-02-03 09:40] LABS: Albumin * 2.1 gm/dl (3.4-5.0); Anion Gap 12.4 mmol/L (6.8-13.8); BUN/Creatinine Ratio 19.7 (9.0-21.6); Bilirubin, Total 0.4 mg/dL (0.0-1.1); Ca. Corrected For Albumin 8.8 mg/dL (8.4-10.2); Calcium * 7.6 mg/dL (7.9-10.9); Carbon Dioxide 21.8 mmol/L (24-32.6); Potassium 3.2 mmol/L (3.4-4.6); Total Protein 6.2 gm/dL (6.2-8.2)
[2021-02-03] MEDS ORDERED: POTASSIUM CHLORIDE 20 MEQ TABLET.SA PO ONE (09:59)
[2021-02-03] MEDS ORDERED: CIPROFLOXACIN HCL 500 MG TABLET PO SCH (10:15)
--- NOTE | 2021-02-03 10:48 | DS ---
(1) Klebsiella sepsis Problem: Acute (2) Sepsis Problem: Resolved Qualifiers: Sepsis acute organ dysfunction status: with acute organ dysfunction Severe sepsis acute organ dysfunction type: encephalopathy Severe sepsis shock status: without septic shock (3) Urinary tract infection Problem: Acute Qualifiers: Urinary tract infection type: acute pyelonephritis Qualified Code(s): N10 - Acute pyelonephritis Date of Discharge:: 02/03/21 Hospital Course: Juventino is an 80 yo male admitted initially for concerns for sepsis secondary to UTI. Urine culture and blood cultures did ultimately grow klebsiella and confirm septicemia. He was started on treatment with rocephin and clinical findings of encephalopathy improved to his baseline and WBC improved towards normal. He was continued on Rocephin until cultures returned sensitivity. Today he is feel well and back at his baseline, vitals are stable, and his cultures show sensitive oral antibiotics. He was changed to Ciprofloxacin 500mg BID and will be continued on this for two weeks. He will be discharged to home and will continue his [facility] services. Discharge planning including exam, setting up continue home health, setting up prescription, and coordinating patient care and education was approximately 60 minutes. Procedures Performed: none Results and Findings: Pending Mircobiology Results 01/31/21 17:00 Blood Blood Culture - Preliminary NO GROWTH AFTER 48 HOURS Lab Pending Results 01/31/21 14:35: WBC 29.5 H, RBC 3.60 L, Hgb 11.4 L, Hct 34.2 L, MCV 95.0, MCH 31.7 H, MCHC 33.3, RDW 12.5, Plt Count 183, MPV 8.5, Neutrophils % (Manual) 84 H, Band Neuts % (Manual) 11 H, Lymphocytes % (Manual) 4 L, Monocytes % (Manual) 1, Neutrophils # (Manual) 24.8 H, Lymphocytes # (Manual) 1.2 L, Monocytes # (Manual) 0.3, Platelet Estimate Normal, RBC Morphology Normal 01/31/21 14:35: ESR 81 H 01/31/21 14:35: Sodium 138, Plasma Sodium 139, Potassium 3.8, Chloride 104, Carbon Dioxide 24.5, Anion Gap 13.3, BUN 33 H D, Creatinine 1.84 H D, Est GFR (Non-Af Amer) 38 L D, BUN/Creatinine Ratio 17.9, Random Glucose 185 H, Calcium 7.9, Calcium Adj for Albumin 8.7, Total Bilirubin 0.6, AST 14, ALT 18 L, Alkaline Phosphatase 84, Total Protein 6.7, Albumin 2.6 L 01/31/21 14:35: Troponin I 0.030 01/31/21 14:35: PT 15.4 H, INR (Anticoag Therapy) 1.51 H 01/31/21 14:35: Lactic Acid, Venous 2.9 H* 01/31/21 14:35: Procalcitonin 2.26 H 01/31/21 15:20: Urine Color Dark yellow, Urine Appearance Cloudy, Urine pH 5.0, Ur Specific Willis >=1.030, Urine Protein 100 H, Urine Glucose (UA) Negative, Urine Ketones Negative, Urine Blood 250 H, Urine Nitrate Positive H, Urine Bilirubin 1 H, Urine Urobilinogen Normal, Ur Leukocyte Esterase 75 H, Urine RBC 10-25 H, Urine WBC 5-10 H, Ur Epithelial Cells 0-5, Urine Bacteria 4+ H, Urine Culture Comments Culture to follow 01/31/21 17:00: Lactic Acid, Venous 2.4 H* 01/31/21 17:02: SARS-CoV-2 (PCR) Not detected 01/31/21 21:06: Lactic Acid, Venous 0.8 02/01/21 06:30: WBC 28.1 H, RBC 3.51 L, Hgb 11.1 L, Hct 33.2 L, MCV 94.6, MCH 31.6 H, MCHC 33.4, RDW 12.7, Plt Count 208, MPV 8.6, Neutrophils % (Manual) 97 H, Band Neuts % (Manual) 1, Lymphocytes % (Manual) 1 L, Monocytes % (Manual) 1, Neutrophils # (Manual) 27.3 H, Lymphocytes # (Manual) 0.3 L, Monocytes # (Manual) 0.3, Platelet Estimate Normal, RBC Morphology Normal 02/01/21 06:30: Sodium 135, Plasma Sodium 135, Potassium 3.6, Chloride 103, Carbon Dioxide 23.0 L, Anion Gap 12.6, BUN 31 H, Creatinine 1.54 H, Est GFR (Non-Af Amer) 46 L D, BUN/Creatinine Ratio 20.1, Random Glucose 124 H D, Calcium 8.0, Calcium Adj for Albumin 9.0, Total Bilirubin 0.5, AST 14, ALT 16 L, Alkaline Phosphatase 81, Total Protein 6.3, Albumin 2.4 L 02/02/21 06:20: WBC 19.5 H D, RBC 3.49 L, Hgb 11.1 L, Hct 33.1 L, MCV 94.8, MCH 31.8 H, MCHC 33.5, RDW 12.5, Plt Count 157, MPV 8.6, Immature Gran % (Auto) 1.60 H, Immature Gran # (Auto) 0.31 H, Neutrophils % 87.2 H, Lymphocytes % 3.5 L, Monocytes % 7.5, Eosinophils % 0.0, Basophils % 0.2, Nucleated RBC % 0.0, Neutrophils # 17.0 H, Lymphocytes # 0.68 L, Monocytes # 1.5 H, Eosinophils # 0.0, Absolute Basophils 0.0 02/02/21 06:20: Sodium 135, Plasma Sodium 135, Potassium 3.5, Chloride 103, Carbon Dioxide 21.4 L, Anion Gap 14.1 H, BUN 27 H, Creatinine 1.27, Est GFR (Non-Af Amer) 58 L D, BUN/Creatinine Ratio 21.3, Random Glucose 104, Calcium 7.8 L, Calcium Adj for Albumin 9.1, Total Bilirubin 0.4, AST 14, ALT 16 L, Alkaline Phosphatase 77, Total Protein 5.9 L, Albumin 2.0 L 02/03/21 09:05: WBC 12.3 H D, RBC 3.86 L, Hgb 12.1 L, Hct 36.3 L, MCV 94.0, MCH 31.3 H, MCHC 33.3, RDW 12.4, Plt Count 177, MPV 9.1, Immature Gran % (Auto) 0.70 H, Immature Gran # (Auto) 0.09 H, Neutrophils % 82.4 H, Lymphocytes % 5.2 L, Monocytes % 10.9 H, Eosinophils % 0.5, Basophils % 0.3, Nucleated RBC % 0.0, Neutrophils # 10.1 H, Lymphocytes # 0.64 L, Monocytes # 1.3 H, Eosinophils # 0.1, Absolute Basophils 0.0 02/03/21 09:05: Sodium 136, Plasma Sodium 137, Potassium 3.2 L, Chloride 105, Carbon Dioxide 21.8 L, Anion Gap 12.4, BUN 23, Creatinine 1.17, Est GFR (Non-Af Amer) 64, BUN/Creatinine Ratio 19.7, Random Glucose 150 H D, Calcium 7.6 L, C alcium Adj for Albumin 8.8, Total Bilirubin 0.4, AST 42, ALT 34, Alkaline Phosphatase 81, Total Protein 6.2, Albumin 2.1 L Discharge Location: Home Disposition: Home Health Service Home Health Agency: [facility] Condition: Good Discharge Activity: Activity as tolerated Discharge Diet: General/regular food Referrals: Kamar Arenas DO [Primary Care Provider] - Problem Oriented Discharge Instructions to Patient/Family: Bacteremia, Adult, Sepsis, Diagnosis, Adult, Urinary Tract Infection, Adult, [id number] Additional Patient Instructions (free text): Pt has [facility] ongoing, please call and fax discharge information to them. Prescriptions (Any new or edited meds): Ciprofloxacin HCl [Cipro] 500 mg PO BID #28 tab Transmission Status: Pending to [facility] Complete Home Medications List: Complete Home Medication List: Aspirin 81 mg PO DAILY 02/14/16 lisinopril 10 mg tablet 10 mg PO DAILY #30 tab 11/09/20 metoprolol tartrate 25 mg tablet 12.5 mg PO DAILY #15 tab 11/09/20 pravastatin 20 mg tablet 20 mg PO HS #30 tab 11/09/20 sertraline 100 mg tablet 100 mg PO DAILY #30 tab 11/09/20 Acetaminophen [Tylenol] 650 mg PO Q6H PRN tablet 02/03/21 Ciprofloxacin HCl [Cipro] 500 mg PO BID #28 tab 02/03/21 Forms: Patient Portal Registration
[2021-02-03 13:03] VITALS: BP 121/55
== END 2021-02-03 13:32 | disposition home health service (06) | DRG 871 ==
LOC: ER 13:26 → MS 18:18 → INTOOBSV 18:18 → MS 19:10
PROVIDERS: ADMIT Family Medicine; ATTEND Family Medicine
DX: N10 Acute pyelonephritis; F41.8 Other specified anxiety disorders; I25.10 Atherosclerotic heart disease of native coronary artery without angina pectoris; R65.20 Severe sepsis without septic shock; J44.9 Chronic obstructive pulmonary disease, unspecified; E78.5 Hyperlipidemia, unspecified; I69.319 Unspecified symptoms and signs involving cognitive functions following cerebral infarction; I10 Essential (primary) hypertension; G93.41 Metabolic encephalopathy; A41.89 Other specified sepsis

== ENCOUNTER 2021-02-13 16:34 | Observation (INO) ==
--- NOTE | 2021-02-13 17:37 | ERNOTE ---
Neuro HPI ER Record Date of Service: 02/13/21 Presenting Symptoms: weakness Time Seen by Provider: 02/13/21 17:14 Source: patient, family Exam Limitations: other - patient poor historian. baseline confusion Immunizations: IMMUNIZATION HX Immunizations Up to Date Yes History of Influenza Vaccine Yes Hx Pneumococcal Vaccination Yes Allergies/Adverse Reactions: Allergies Allergy/AdvReac Type Severity Reaction Status Date / Time No Known Allergies Allergy Verified 02/13/21 16:58 Home Medications: HOME MEDICATIONS Aspirin 81 mg PO DAILY 02/14/16 [Last Taken Unknown] lisinopril 10 mg tablet 10 mg PO DAILY #30 tab 11/09/20 [Last Taken Unknown] metoprolol tartrate 25 mg tablet 12.5 mg PO DAILY #15 tab 11/09/20 [Last Taken Unknown] pravastatin 20 mg tablet 20 mg PO HS #30 tab 11/09/20 [Last Taken Unknown] sertraline 100 mg tablet 100 mg PO DAILY #30 tab 11/09/20 [Last Taken Unknown] Acetaminophen [Tylenol] 650 mg PO Q6H PRN tab 02/03/21 [Last Taken Unknown] Ciprofloxacin HCl [Cipro] 500 mg PO BID #28 tab 02/03/21 [Last Taken Unknown] - History of Present Illness Narrative: Patient presents to the ED for left arm weakness. He has some confusion and an onset cannot be ascertained. This is however a new Sx and a deviation from his baseline. Denies headache. No CP or SOB. Does have some new leg swelling. Never had this before. Has not seen anyone else for it. Nothing makes it better or worse. LUE not working right. Onset: cannot confirm onset - Character of Deficits New weakness: Present: LUE Altered sensation: Present: LUE Additional Deficits: Absent: vision problems Associated Symptoms: Reports: confused. Denies: fever/chills, chest pain, neck/back pain, headache, seizure, decreased responsiveness Prior Treament: Reports: recently seen Review of Systems - Narrative Narrative: ROS unobtainable d/t patient condition/poor historian - Review of Systems Constitutional: Absent: fever Respiratory: Absent: shortness of breath Cardiology: Absent: chest pain Gastrointestinal/Abdominal: Absent: abdominal pain Neurological: Present: See HPI Medical History (Last Reviewed 02/13/21 @ 17:36 by Nelson Barba MD) Infected cut of finger (Acute) left index finger Weight loss of more than 10% body weight (Acute) He is lost at least 15 pounds over the past 2 months and has lost about 5 pounds the last week. Abdominal mass, right lower quadrant (Acute) Hypertension (Chronic) COPD (chronic obstructive pulmonary disease) (Chronic) Anxiety (Chronic) Depression (Chronic) CAD (coronary artery disease) (Chronic) CVA (cerebral vascular accident) (Chronic) AAA (abdominal aortic aneurysm) (Chronic) Cataract cataract surgery of bilateral eyes Hernia of abdominal wall Male circumcision repaired as an adult Surgical History: Surgical History (Last Reviewed 02/13/21 @ 17:36 by Nelson Barba MD) H/O hernia repair S/P AAA repair Family History: Family History (Last Reviewed 02/13/21 @ 17:36 by Nelson Barba MD) Brother , 2 brothers AAA AAA (abdominal aortic aneurysm) Mother Old age Father Old age Social History: (Last Reviewed 02/13/21 @ 17:36 by Nelson Barba MD) Social History: custodial: No Marital status: / lives independently: Yes household members: none current occupational status: retired Highest level of school completed/degree received: high school graduate Service: No Tobacco: Smoking Status: Current every day smoker tobacco type: cigarettes Smoking cigarettes per day: 20.0 Smoking packs per day: 1 Alcohol: alcohol intake: current Alcohol type: beer alcohol intake frequency: holiday/special occasion Substance Use: substance use type: does not use Dietary Habits: caffeine: Yes Physical Exam - Physical Exam General Appearance: Present: alert, no apparent distress Head Exam: Present: normal inspection, no evidence of injury Eye Exam: Normal inspection: bilateral, PERRL: bilateral Ears, Nose, Throat: Present: normal ENT inspection Neck: Present: normal inspection, other - no bruit noted Respiratory: Present: no respiratory distress, normal breath sounds, lungs clear Cardiovascular/Chest: Present: regular rate, rhythm, normal peripheral pulses, other - strong radial pulse Gastrointestinal/Abdominal: Present: normal bowel sounds, nontender, soft Back Exam: Absent: CVA tenderness (R), CVA tenderness (L) Extremity Exam: Present: pedal edema Neurological Exam: Present: alert, other - Difficult exam, there is dysmetria left hand/arm and some likely pronator drift Skin Exam: Present: normal color, warm/dry Progress - Results and Orders Patient's Lab Results:: I have reviewed the patient's lab results. - Vital Signs Patient's Vital Signs:: I have reviewed the patient's vital signs. Vital Signs: Vital Signs 02/13/21 16:52 Temperature 36.9 C Pulse Rate 65 Respiratory Rate 18 Blood Pressure 142/56 O2 Sat by Pulse Oximetry 100 - EKG EKG #1 EKG: NSR EKG read: Interp. by me EKG Comments: NSR rate 90. Non-specific ST/T wave changes, no clear evidence of STEMI noted - X-Ray X-Ray #1 X-Ray: chest Interpretation: Interp. by me X-ray Comments: I personally reviewed CXR image as well as official radiology report - CT/Ultrasound CT/Ultrasound Narrative: I reviewed official radiology report for CT head. - Progress/Reassessment Chief Complaint: CerebroVascular Accident Progress Note-Subjective: 02/13/21 18:30 Patient has stroke-like Sx. Not in tPA window. Hx stroke as well. No indication for transfer to stroke center as out of any therapeutic window. Also new onset fluid overload, IV lasix given. D/W Dr Leach who will admit. Lindsay ent is agreeable. Departure Clinical Impression: Stroke-like symptom, Fluid overload - Departure Disposition: Still a patient Condition: Fair Referrals: Kamar Arenas DO [Primary Care Provider] -
[2021-02-13 17:41] LABS: Hematocrit 31.7 % (42.0-52.0); Hemoglobin 10.2 gm/dL (13.5-18.0); Mean Cell Volume 94.9 fl (78-100); Mean Corpuscular Hemoglobin 30.5 pg (27-31); Mean Corpuscular Hgb Conc 32.2 g/dl (32-36); Mean Platelet Volume 8.3 fl (8-11.3); Platelet Count 204 K/mm3 (150-450); Red Blood Count 3.34 M/mm3 (4.7-6.0); Red Cell Distribution Width 12.7 % (11.5-14.0); White Blood Count 9.4 K/mm3 (4.0-10.5)
[2021-02-13 17:52] LABS: Prothrombin Time (Patient) 12.6 Seconds (9.1-10.7)
[2021-02-13 17:53] LABS: INR 1.22 INR (0.92-1.08); Partial Thrombolplastin Time 32.8 Seconds (24-32)
[2021-02-13 17:55] LABS: Total Cells Counted 100
[2021-02-13 18:02] LABS: ALT 22 U/L (19-67); AST 16 U/L (0-48); Albumin * 2.7 gm/dl (3.4-5.0); Alkaline Phosphatase * 85 U/L (50-170); Anion Gap 11.4 mmol/L (6.8-13.8); BNP * 2735 pg/mL (5-650); BUN/Creatinine Ratio 13.9 (9.0-21.6); Bilirubin, Total 0.3 mg/dL (0.0-1.1); Blood Urea Nitrogen 17 mg/dL (6-23); Ca. Corrected For Albumin 8.9 mg/dL (8.4-10.2); Calcium * 8.2 mg/dL (7.9-10.9); Carbon Dioxide 26.3 mmol/L (24-32.6); Chloride 100 mmol/L (97-106); Glucose * 69 mg/dL (70-110); Potassium 3.7 mmol/L (3.4-4.6); Sodium 134 mmol/L (132-142); Total Protein 6.6 gm/dL (6.2-8.2)
[2021-02-13 18:04] LABS: Troponin I Less than 0.017 ng/mL (0.00-0.10)
[2021-02-13 18:06] LABS: Atypical (Reactive) Lymph 1 % (0-2); Band 1 % (0-2.0); Eosinophil 3 % (0-3); Lymphocyte 19 % (20-51); Monocyte 4 % (0-9); Neutrophil 72 % (42-75); Neutrophil # 6.8 K/mm3 (1.3-6.0)
[2021-02-13 18:07] LABS: Platelet Estimate Normal (NORMAL); RBC Morphology Normal (NORMAL)
[2021-02-13] MEDS ORDERED: DEXTROSE 50%-WATER 50 ML SYRG IV ONE (18:17)
[2021-02-13] MEDS ORDERED: FUROSEMIDE 10 MG/ML VIAL IV ONE (18:18)
[2021-02-13] MEDS ORDERED: ASPIRIN 81 MG TAB.CHEW PO ONE (18:29)
[2021-02-13] MEDS ORDERED: ACETAMINOPHEN 325 MG TABLET PO PRN (19:03)
--- NOTE | 2021-02-13 19:03 | HP ---
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 His daughter states he was last seen normal yesterday around 4:30-5 p.m. Around 4:00 PM today he was noted to have left hand weakness. He was subsequently brought to the emergency room for evaluation. Patient lives at home alone but his family brings him dinner daily. His daughter also states he has new bilateral lower extremity edema. In the ER his vitals were stable, BNP was elevated at 2735, chest x-ray showed faint curly B-lines which could imply mild interstitial edema, suspected atelectasis or consolidation at the lung base posteriorly. At the time of my exam his left hand weakness was improving. He received a dose of Lasix 40 mg IV in the emergency room. He is being admitted for volume overload and left hand weakness possibly secondary to a TIA. Medical History (Last Reviewed 02/13/21 @ 17:36 by Nelson Barba MD) Infected cut of finger (Acute) left index finger Weight loss of more than 10% body weight (Acute) He is lost at least 15 pounds over the past 2 months and has lost about 5 pounds the last week. Abdominal mass, right lower quadrant (Acute) Hypertension (Chronic) COPD (chronic obstructive pulmonary disease) (Chronic) Anxiety (Chronic) Depression (Chronic) CAD (coronary artery disease) (Chronic) CVA (cerebral vascular accident) (Chronic) AAA (abdominal aortic aneurysm) (Chronic) Cataract cataract surgery of bilateral eyes Hernia of abdominal wall Male circumcision repaired as an adult Surgical History: Surgical History (Last Reviewed 02/13/21 @ 17:36 by Nelson Barba MD) H/O hernia repair S/P AAA repair Family History: Family History (Last Reviewed 02/13/21 @ 17:36 by Nelson Barba MD) Brother , 2 brothers AAA AAA (abdominal aortic aneurysm) Mother Old age Father Old age Social History: (Last Reviewed 02/13/21 @ 17:36 by Nelson Barba MD) Social History: senior care: No Marital status: / lives independently: Yes household members: none current occupational status: retired Highest level of school completed/degree received: high school graduate Service: No Tobacco: Smoking Status: Current every day smoker tobacco type: cigarettes Smoking cigarettes per day: 20.0 Smoking packs per day: 1 Alcohol: alcohol intake: current Alcohol type: beer alcohol intake frequency: holiday/special occasion Substance Use: substance use type: does not use Dietary Habits: caffeine: Yes Review Of Systems (GEN) - Review of Systems Generalized/Overall Review: Absent: Chills, Fever Respiratory: Absent: Shortness of Breath Cardiac: Present: Edema - Bilateral leg. Absent: Chest Pain Abdominal: Absent: Abdominal Pain Neurological: Present: Weakness - Left hand Misc: All systems neg except as marked Immunizations: IMMUNIZATION HX Immunizations Up to Date Yes History of Influenza Vaccine Yes Hx Pneumococcal Vaccination Yes Allergies/Adverse Reactions: Allergies Allergy/AdvReac Type Severity Reaction Status Date / Time No Known Allergies Allergy Verified 02/13/21 16:58 Home Medications: HOME MEDICATIONS Aspirin 81 mg PO DAILY 02/14/16 [Last Taken Unknown] lisinopril 10 mg tablet 10 mg PO DAILY #30 tab 11/09/20 [Last Taken Unknown] metoprolol tartrate 25 mg tablet 12.5 mg PO DAILY #15 tab 11/09/20 [Last Taken Unknown] pravastatin 20 mg tablet 20 mg PO HS #30 tab 11/09/20 [Last Taken Unknown] sertraline 100 mg tablet 100 mg PO DAILY #30 tab 11/09/20 [Last Taken Unknown] Acetaminophen [Tylenol] 650 mg PO Q6H PRN tab 02/03/21 [Last Taken Unknown] Ciprofloxacin HCl [Cipro] 500 mg PO BID #28 tab 02/03/21 [Last Taken Unknown] Exam - Exam Vital Signs: Vital Signs - Last Taken Temp 36.9 C 02/13/21 16:52 Pulse 59 L 02/13/21 17:57 Resp 12 02/13/21 17:57 BP 150/60 H 02/13/21 17:57 Pulse Ox 99 02/13/21 17:57 Constitutional: Present: Cooperative, Well developed, Well nourished, No distress, Elderly ENT Exam: Present: hearing grossly normal, moist mucous membranes Eye Exam: bilateral eye: normal inspection, PERRL, EOMI Neck: Present: non-tender, supple. Absent: lymphadenopathy (R), lymphadenopathy (L) Back Exam: Present: normal inspection, no CVA tenderness, no vertebral tenderness Respiratory: Present: lungs clear, crackles - Mild in the right lung base, No wheezing. Absent: rhonchi Cardiovascular/Chest: Present: normal peripheral pulses, regular rate, rhythm, no murmur, edema - 1 to 2+ pitting edema in bilateral lower extremity Peripheral Pulses: dorsalis-pedis (R): 1+, dorsalis-pedis (L): 1+ Abdomen: Present: Normal bowel sounds, soft, nontender Extremity: Present: lower extremity edema - 1+ to 2+ pitting edema in bilateral legs Skin Exam: Present: normal color, warm/dry Neurologic: Present: alert, normal mood/affect Appearance: Present: appropriate appearance, impaired recent memory Eye contact: Present: cooperative Thoughts: Present: normal mood /affect Diagnostic Studies: Abnormal Lab Results 02/13/21 02/13/21 02/13/21 Range/Units 17:35 17:35 17:35 RBC 3.34 L (4.7-6.0) M/mm3 Hgb 10.2 L (13.5-18.0) gm/dL Hct 31.7 L (42.0-52.0) % Lymphocytes % (Manual) 19 L (20-51) % Neutrophils # (Manual) 6.8 H (1.3-6.0) K/mm3 PT 12.6 H (9.1-10.7) Seconds INR (Anticoag Therapy) 1.22 H (0.92-1.08) INR PTT (Efraín) 32.8 H (24-32) Seconds Random Glucose 69 L (70-110) mg/dL B-Natriuretic Peptide 2735 H (5-650) pg/mL Albumin 2.7 L (3.4-5.0) gm/dl Laboratory Results WBC 9.4 K/mm3 (4.0-10.5) 02/13/21 17:35 RBC 3.34 M/mm3 (4.7-6.0) L 02/13/21 17:35 Hgb 10.2 gm/dL (13.5-18.0) L 02/13/21 17:35 Hct 31.7 % (42.0-52.0) L 02/13/21 17:35 MCV 94.9 fl (78-100) 02/13/21 17:35 MCH 30.5 pg (27-31) 02/13/21 17:35 MCHC 32.2 g/dl (32-36) 02/13/21 17:35 RDW 12.7 % (11.5-14.0) 02/13/21 17:35 Plt Count 204 K/mm3 (150-450) 02/13/21 17:35 MPV 8.3 fl (8-11.3) 02/13/21 17:35 Neutrophils % (Manual) 72 % (42-75) 02/13/21 17:35 Band Neuts % (Manual) 1 % (0-2.0) 02/13/21 17:35 Lymphocytes % (Manual) 19 % (20-51) L 02/13/21 17:35 Monocytes % (Manual) 4 % (0-9) 02/13/21 17:35 Eosinophils % (Manual) 3 % (0-3) 02/13/21 17:35 Neutrophils # (Manual) 6.8 K/mm3 (1.3-6.0) H 02/13/21 17:35 Lymphocytes # (Manual) 1.8 k/mm3 (1.5-3.5) 02/13/21 17:35 Monocytes # (Manual) 0.4 k/mm3 (0.0-1.0) 02/13/21 17:35 Eosinophils # (Manual) 0.3 k/mm3 (0.0-0.7) 02/13/21 17:35 Atypic/Reactive Lymphs 1 % (0-2) 02/13/21 17:35 Platelet Estimate Normal (NORMAL) 02/13/21 17:35 RBC Morphology Normal (NORMAL) 02/13/21 17:35 PT 12.6 Seconds (9.1-10.7) H 02/13/21 17:35 INR (Anticoag Therapy) 1.22 INR (0.92-1.08) H 02/13/21 17:35 PTT ([place]) 32.8 Seconds (24-32) H 02/13/21 17:35 Sodium 134 mmol/L (132-142) 02/13/21 17:35 Plasma Sodium 134 mmol/L (130-142) 02/13/21 17:35 Potassium 3.7 mmol/L (3.4-4.6) 02/13/21 17:35 Chloride 100 mmol/L (97-106) 02/13/21 17:35 Carbon Dioxide 26.3 mmol/L (24-32.6) 02/13/21 17:35 Anion Gap 11.4 mmol/L (6.8-13.8) 02/13/21 17:35 BUN 17 mg/dL (6-23) 02/13/21 17:35 Creatinine 1.22 mg/dL (0.4-1.4) 02/13/21 17:35 Est GFR (Non-Af Amer) 60 mL/min (60-130) 02/13/21 17:35 BUN/Creatinine Ratio 13.9 (9.0-21.6) 02/13/21 17:35 Random Glucose 69 mg/dL (70-110) L 02/13/21 17:35 Lactic Acid, Venous 1.5 mmol/L (0.4-2.0) 02/13/21 17:35 Calcium 8.2 mg/dL (7.9-10.9) 02/13/21 17:35 Calcium Adj for Albumin 8.9 mg/dL (8.4-10.2) 02/13/21 17:35 Total Bilirubin 0.3 mg/dL (0.0-1.1) 02/13/21 17:35 AST 16 U/L (0-48) 02/13/21 17:35 ALT 22 U/L (19-67) 02/13/21 17:35 Alkaline Phosphatase 85 U/L (50-170) 02/13/21 17:35 Troponin I Less than 0.017 ng/mL (0.00-0.10) 02/13/21 17:35 B-Natriuretic Peptide 2735 pg/mL (5-650) H 02/13/21 17:35 Total Protein 6.6 gm/dL (6.2-8.2) 02/13/21 17:35 Albumin 2.7 gm/dl (3.4-5.0) L 02/13/21 17:35 Assessment/Plan - Narrative Narrative: 81-year-old male with a past medical history of AAA, anxiety, CAD, COPD, 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 His daughter states he was last seen normal yesterday around 4:30-5 p.m. Around 4:00 PM today he was noted to have left hand weakness. He was subsequently brought to the emergency room for evaluation. Patient lives at home alone but his family brings him dinner daily. His daughter also states he has new bilateral lower extremity edema. In the ER his vitals were stable, BNP was elevated at 2735, chest x-ray showed faint curly B-lines which could imply mild interstitial edema, suspected atelectasis or consolidation at the lung base posteriorly. At the time of my exam his left hand weakness was improving. He received a dose of Lasix 40 mg IV in the emergency room. He is being admitted for volume overload and left hand weakness possibly secondary to a TIA. Plan #1 CBC and CMP in the morning #2 resume home medications for comorbidities #3 gentle diuresis with Lasix - Assessment/Plan (1) Fluid overload Problem: Acute (2) Left hand weakness Problem: Acute (3) Bilateral lower extremity edema Problem: Acute (4) TIA (transient ischemic attack) Problem: Suspected (5) Stroke-like symptom Problem: Acute (6) Hypertension Problem: Chronic Qualifiers: (7) COPD (chronic obstructive pulmonary disease) Problem: Chronic (8) Depression Problem: Chronic Qualifiers: (9) CAD (coronary artery disease) Problem: Chronic (10) CVA (cerebral vascular accident) Problem: Chronic Qualifiers: (11) Abdominal aortic aneurysm Problem: Acute
[2021-02-13 20:27] LABS: Urine Bilirubin Negative (NEGATIVE); Urine Blood 250 /ul (NEGATIVE); Urine Ketone Negative (NEGATIVE); Urine Nitrite Negative (NEGATIVE); Urine Protein Negative (NEGATIVE); Urine Specific Gravity 1.015 SP.GR. (1.005-1.030); Urine Urobilinogen Normal (NORMAL)
[2021-02-13 20:48] LABS: Urine Appearance Clear (CLEAR); Urine Color Yellow
[2021-02-13 20:50] LABS: Urine WBC None Seen /hpf (0-5)
[2021-02-13 20:51] LABS: Urine Bacteria TRACE; Urine Hyaline Cast TRACE /LPF
[2021-02-13] MEDS ORDERED: SIMVASTATIN 10 MG TABLET PO SCH (21:00)
[2021-02-14 06:28] LABS: Hematocrit 33.4 % (42.0-52.0); Hemoglobin 11.1 gm/dL (13.5-18.0); Mean Cell Volume 93.6 fl (78-100); Mean Corpuscular Hemoglobin 31.1 pg (27-31); Mean Corpuscular Hgb Conc 33.2 g/dl (32-36); Mean Platelet Volume 8.5 fl (8-11.3); Neutrophil # 6.3 K/mm3 (1.3-6.0); Neutrophil % 68.9 % (42-75.0); Platelet Count 222 K/mm3 (150-450); Red Blood Count 3.57 M/mm3 (4.7-6.0); Red Cell Distribution Width 12.5 % (11.5-14.0); White Blood Count 9.1 K/mm3 (4.0-10.5)
[2021-02-14 06:48] LABS: Albumin * 2.7 gm/dl (3.4-5.0); Anion Gap 11.1 mmol/L (6.8-13.8); BUN/Creatinine Ratio 14.8 (9.0-21.6); Bilirubin, Total 0.4 mg/dL (0.0-1.1); Calcium * 8.3 mg/dL (7.9-10.9); Carbon Dioxide 27.7 mmol/L (24-32.6); Potassium 3.8 mmol/L (3.4-4.6); Total Protein 6.8 gm/dL (6.2-8.2)
[2021-02-14] MEDS ORDERED: FUROSEMIDE 10 MG/ML VIAL IV SCH (09:00)
[2021-02-14] MEDS ORDERED: SERTRALINE HCL 100 MG TABLET PO SCH (09:00)
[2021-02-14] MEDS ORDERED: LISINOPRIL 10 MG TABLET PO SCH (09:00)
[2021-02-14] MEDS ORDERED: METOPROLOL TARTRATE 25 MG TABLET PO SCH (09:00)
[2021-02-14] MEDS ORDERED: ASPIRIN 81 MG TAB.CHEW PO SCH (09:00)
--- NOTE | 2021-02-14 17:08 | DS ---
Date of Discharge:: 02/14/21 Hospital Course: 81-year-old male with history of CAD, COPD, CVA with memory impairment and depression as well as hypertension presented to the hospital yesterday after he was found to have left hand weakness (unknown duration of time). Patient likely with TIA as his neurologic deficits have completely resolved and he is back to his baseline and comfortable today. Patient wants to go home at this time. Patient did have some lower extremity edema with an elevated BNP at greater than 2700. He was given IV Lasix and diuresed well. He lost roughly 11 pounds in fluid weight last 24 hours. An echocardiogram was ordered and taken while here, results have not returned yet but patient will follow up with me in the outpatient setting in 1 week and will discuss them at that time. No other changes to his medications aside from starting him on 20 mg of Lasix daily. His vital signs been stable and he has been afebrile. No respiratory distress whatsoever upon presentation or at discharge. Overall patient is back to his baseline mentation and clinically appears back to his normal self. Patient did have a hemoglobin of 11.1 and hematocrit of 33.4 (at baseline for both values). The rest of his blood work here was within normal limits. Patient will follow with me in 1 week, he or his daughter will call with any questions or concerns. Medication sent to his pharmacy. 1 hour of time spent examining the patient today, reviewing his chart, planning his follow-up, reconciled his medications, and completing this note. Procedures Performed: none Results and Findings: Lab Pending Results 02/13/21 17:35: WBC 9.4, RBC 3.34 L, Hgb 10.2 L, Hct 31.7 L, MCV 94.9, MCH 30.5, MCHC 32.2, RDW 12.7, Plt Count 204, MPV 8.3, Neutrophils % (Manual) 72, Band Neuts % (Manual) 1, Lymphocytes % (Manual) 19 L, Monocytes % (Manual) 4, Eosinophils % (Manual) 3, Neutrophils # (Manual) 6.8 H, Lymphocytes # (Manual) 1.8, Monocytes # (Manual) 0.4, Eosinophils # (Manual) 0.3, Atypic/Reactive Lymphs 1, Platelet Estimate Normal, RBC Morphology Normal 02/13/21 17:35: PT 12.6 H, INR (Anticoag Therapy) 1.22 H, PTT ([place]) 32.8 H 02/13/21 17:35: Sodium 134, Plasma Sodium 134, Potassium 3.7, Chloride 100, Carbon Dioxide 26.3, Anion Gap 11.4, BUN 17, Creatinine 1.22, Est GFR (Non-Af Amer) 60, BUN/Creatinine Ratio 13.9, Random Glucose 69 L, Calcium 8.2, Calcium Adj for Albumin 8.9, Total Bilirubin 0.3, AST 16, ALT 22, Alkaline Phosphatase 85, Troponin I Less than 0.017, B-Natriuretic Peptide 2735 H, Total Protein 6.6, Albumin 2.7 L 02/13/21 17:35: Lactic Acid, Venous 1.5 02/13/21 19:15: Urine Color Yellow, Urine Appearance Clear, Urine pH 7.0, Ur Specific [place] 1.015, Urine Protein Negative, Urine Glucose (UA) Negative, Urine Ketones Negative, Urine Blood 250 H, Urine Nitrate Negative, Urine Bilirubin Negative, Urine Urobilinogen Normal, Ur Leukocyte Esterase Negative, Urine RBC 5-10 H, Urine WBC None seen, Ur Epithelial Cells 0-5, Urine Bacteria Trace, Hyaline Casts Trace, Urine Culture Comments No culture indicated 02/13/21 19:19: SARS-CoV-2 (PCR) Not detected 02/14/21 06:10: WBC 9.1, RBC 3.57 L, Hgb 11.1 L, Hct 33.4 L, MCV 93.6, MCH 31.1 H, MCHC 33.2, RDW 12.5, Plt Count 222, MPV 8.5, Immature Gran % (Auto) 1.10 H, Immature Gran # (Auto) 0.10 H, Neutrophils % 68.9, Lymphocytes % 18.1 L, Monocytes % 8.7, Eosinophils % 2.9, Basophils % 0.3, Nucleated RBC % 0.0, Neutrophils # 6.3 H, Lymphocytes # 1.65, Monocytes # 0.8, Eosinophils # 0.3, Absolute Basophils 0.0 02/14/21 06:10: Sodium 140, Plasma Sodium 140, Potassium 3.8, Chloride 105, Carbon Dioxide 27.7, Anion Gap 11.1, BUN 18, Creatinine 1.22, Est GFR (Non-Af Amer) 60, BUN/Creatinine Ratio 14.8, Random Glucose 99 D, Calcium 8.3, Calcium Adj for Albumin 9.0, Total Bilirubin 0.4, AST 18, ALT 22, Alkaline Phosphatase 89, Total Protein 6.8, Albumin 2.7 L Discharge Location: Home Disposition: Home Health Service Home Health Agency: [facility] Condition: Fair Discharge Activity: Activity as tolerated Discharge Diet: General/regular food Referrals: Kamar Arenas DO [Primary Care Provider] - One Week Additional Patient Instructions (free text): Resume [facility]. Call report to [phone] ([facility]) and fax discharge instructions, orders, and med list [phone]. Prescriptions (Any new or edited meds): Furosemide 20 mg PO DAILY #30 tab Transmission Status: Pending to [facility] Complete Home Medications List: Complete Home Medication List: Aspirin 81 mg PO DAILY 02/14/16 lisinopril 10 mg tablet 10 mg PO DAILY #30 tab 11/09/20 metoprolol tartrate 25 mg tablet 12.5 mg PO DAILY #15 tab 11/09/20 pravastatin 20 mg tablet 20 mg PO HS #30 tab 11/09/20 sertraline 100 mg tablet 100 mg PO DAILY #30 tab 11/09/20 Acetaminophen [Tylenol] 650 mg PO Q6H PRN tab 02/03/21 Ciprofloxacin HCl [Cipro] 500 mg PO BID #28 tab 02/03/21 Furosemide 20 mg PO DAILY #30 tab 02/14/21
[2021-02-14 18:32] VITALS: BP 139/72
--- NOTE | 2021-02-15 10:45 | ECHO ---
This report is available in the EMR
== END 2021-02-14 17:50 | disposition home health service (06) ==
LOC: MS 16:34 → ER 16:34 → MS 20:52
PROVIDERS: ADMIT Internal Medicine; ATTEND Family Medicine

== ENCOUNTER 2021-03-08 09:07 | Inpatient (IN) ==
[2021-03-08] MEDS ORDERED: NORMAL SALINE 1,000 ML IV ONE ×3 (09:57→21:15)
[2021-03-08] MEDS ORDERED: cefTRIAXone SODIUM 1,000 MG/100 ML BAG IV ONE (09:57)
[2021-03-08] MEDS ORDERED: ACETAMINOPHEN 1,000 MG/100 ML BTL IV ONE (09:57)
[2021-03-08 10:05] LABS: Urine Bilirubin 3 mg/dl (NEGATIVE); Urine Blood 250 /ul (NEGATIVE); Urine Ketone 5 mg/dL (NEGATIVE); Urine Protein >=300 mg/dL (NEGATIVE); Urine Specific Gravity 1.025 SP.GR. (1.005-1.030); Urine Urobilinogen Normal (NORMAL); Urine pH 6.5 pH (5.0-7.0)
--- NOTE | 2021-03-08 10:05 | ERNOTE ---
ER Male HPI Date of Service: 03/08/21 Stated Complaint: Not feeling right and puking blood and disorienta ER Male: other - confusion, fever Time Seen by Provider: 03/08/21 09:30 Source: patient, family Exam Limitations: clinical condition Immunizations: IMMUNIZATION HX Immunizations Up to Date Yes History of Influenza Vaccine Yes Hx Pneumococcal Vaccination Yes Allergies/Adverse Reactions: Allergies No Known Allergies Allergy (Verified 03/08/21 09:18) Home Medications: HOME MEDICATIONS Aspirin 81 mg PO DAILY 02/14/16 [Last Taken Unknown] Acetaminophen [Tylenol] 650 mg PO Q6H PRN tab 02/03/21 [Last Taken Unknown] lisinopril 10 mg tablet 10 mg PO DAILY #30 tab 03/02/21 [Last Taken Unknown] metoprolol tartrate 25 mg tablet 12.5 mg PO DAILY #15 tab 03/02/21 [Last Taken Unknown] pravastatin 20 mg tablet 20 mg PO HS #30 tab 03/02/21 [Last Taken Unknown] sertraline 100 mg tablet 100 mg PO DAILY #30 tab 03/02/21 [Last Taken Unknown] Furosemide 20 mg PO DAILY PRN 03/08/21 [Last Taken Unknown] - History of Present Illness Narrative: Patient presents to the ED with daughter for confusion, shaky, vomiting and blood in urine. Apparently he was at his baseline yesterday. This am noted to be hot and sweaty, confused, generalized weakness. Had vomited. Also blood noted in his urine. Brought to the ED. At this time he denies pain. No CP or SOB. Nothing makes this better or worse. Timing: Present: constant Quality: Present: moderate Onset Location: Present: other - he denies pain at this time Radiation: Present: none Activities at Onset: Present: none Prior Abdominal Problems: Present: other - had similar Sx with sepsis in the past Modifying Factors - (Improves): Present: other - nothing Modifying Factors - (Worsens): Present: other - nothing Associated Symptoms: Present: vomiting. Absent: fever/chills, abdominal pain Prior Treatment: Present: recently seen. Absent: currently on antibiotics Review of Systems - Review of Systems Constitutional: Present: fever EYE: Present: no symptoms reported ENT: Absent: sore throat Respiratory: Absent: shortness of breath Cardiology: Absent: chest pain Gastrointestinal/Abdominal: Present: See HPI Genitourinary: Present: See HPI Neurological: Absent: weakness All Other Systems: All systems neg except as marked Medical History (Last Reviewed 03/08/21 @ 10:03 by Nelson Barba MD) Infected cut of finger (Acute) left index finger Weight loss of more than 10% body weight (Acute) He is lost at least 15 pounds over the past 2 months and has lost about 5 pounds the last week. Abdominal mass, right lower quadrant (Acute) Hypertension (Chronic) COPD (chronic obstructive pulmonary disease) (Chronic) Anxiety (Chronic) Depression (Chronic) CAD (coronary artery disease) (Chronic) CVA (cerebral vascular accident) (Chronic) AAA (abdominal aortic aneurysm) (Chronic) Cataract cataract surgery of bilateral eyes Hernia of abdominal wall Male circumcision repaired as an adult Surgical History: Surgical History (Last Reviewed 03/08/21 @ 10:03 by Nelson Barba MD) H/O hernia repair S/P AAA repair Family History: Family History (Last Reviewed 03/08/21 @ 10:03 by Nelson Barba MD) Brother , 2 brothers AAA AAA (abdominal aortic aneurysm) Mother Old age Father Old age Social History: (Last Reviewed 03/08/21 @ 10:03 by Nelson Barba MD) Social History: retirement: No Marital status: / lives independently: Yes household members: none current occupational status: retired Highest level of school completed/degree received: high school graduate Service: No Tobacco: Smoking Status: Current every day smoker tobacco type: cigarettes Smoking cigarettes per day: 20.0 Smoking packs per day: 1 Alcohol: alcohol intake: current Alcohol type: beer alcohol intake frequency: holiday/special occasion Substance Use: substance use type: does not use Dietary Habits: caffeine: Yes Physical Exam - Physical Exam General Appearance: Present: alert, other - no acute distress. chronically ill appearing. COnfused. Generalized weakness Head Exam: Present: normal inspection, no evidence of injury Eye Exam: Normal inspection: bilateral, PERRL: bilateral Ears, Nose, Throat: Present: normal ENT inspection Neck: Present: normal inspection Respiratory: Present: no accessory muscle use, other - mild tachypnea Cardiovascular/Chest: Present: tachycardia Gastrointestinal/Abdominal: Present: normal bowel sounds, nontender, nondistended, soft Male Genitals Exam: Present: other - no active bleeding from penis Back Exam: Absent: CVA tenderness (R), CVA tenderness (L) Extremity Exam: Present: no edema Neurological Exam: Present: alert, other - prior stroke. No clear findings of acute stroke. Skin Exam: Present: normal color, warm/dry Progress - Results and Orders Patient's Lab Results:: I have reviewed the patient's lab results. - Vital Signs Patient's Vital Signs:: I have reviewed the patient's vital signs. Vital Signs: Vital Signs 03/08/21 09:07 03/08/21 09:48 Temperature 37.8 C 38.3 C H Pulse Rate 114 H 107 H Respiratory Rate 16 16 Blood Pressure 133/70 135/64 O2 Sat by Pulse Oximetry 95 94 - EKG EKG #1 EKG read: Interp. by me EKG Comments: Computer read is A Fib, I feel this is NSR rate 99. Non-specific ST/T wave changes, no STEMI noted. - X-Ray X-Ray #1 X-Ray: chest Interpretation: Interp. by me X-ray Comments: I personally reviewed the CXR images as well as official radiology report. - Progress/Reassessment Chief Complaint: Urinary Tract Problems Progress Note-Subjective: 03/08/21 11:47 Patient given IV ABx and IV fluids. He did have improved confusion after fever treatment and improved strength but not at a point where he can go home. I discussed the case with Dr Arenas who admit. Patient and family agreeable. I discussed warning signs and reasons to return as well as the need for close f/u. Departure Clinical Impression: UTI (urinary tract infection), Confusion, VY (acute kidney injury), Generalized weakness, Fever - Departure Disposition: Still a patient Condition: Fair Referrals: Kamar Arenas DO [Primary Care Provider] -
[2021-03-08 10:12] LABS: Urine Appearance Cloudy (CLEAR); Urine Bacteria 2+; Urine Nitrite Positive (NEGATIVE); Urine RBC >50 /hpf (0-5)
[2021-03-08 10:29] LABS: Hematocrit 37.2 % (42.0-52.0); Hemoglobin 12.3 gm/dL (13.5-18.0); Mean Cell Volume 92.1 fl (78-100); Mean Corpuscular Hemoglobin 30.4 pg (27-31); Mean Corpuscular Hgb Conc 33.1 g/dl (32-36); Mean Platelet Volume 9.4 fl (8-11.3); Platelet Count 95 K/mm3 (150-450); Red Blood Count 4.04 M/mm3 (4.7-6.0); Red Cell Distribution Width 13.5 % (11.5-14.0); White Blood Count 16.8 K/mm3 (4.0-10.5)
[2021-03-08 10:36] LABS: Total Cells Counted 100
[2021-03-08 10:51] LABS: Band 6 % (0-2.0); Lymphocyte 3 % (20-51); Monocyte 5 % (0-9); Neutrophil 86 % (42-75); Neutrophil # 14.4 K/mm3 (1.3-6.0)
[2021-03-08 10:56] LABS: Albumin * 3.2 gm/dl (3.4-5.0); Anion Gap 15.7 mmol/L (6.8-13.8); BUN/Creatinine Ratio 16.4 (9.0-21.6); Bilirubin, Total 1.4 mg/dL (0.0-1.1); Ca. Corrected For Albumin 8.7 mg/dL (8.4-10.2); Calcium * 8.4 mg/dL (7.9-10.9); Potassium 3.7 mmol/L (3.4-4.6); Total Protein 7.6 gm/dL (6.2-8.2)
[2021-03-08 10:57] LABS: Platelet Estimate Normal (NORMAL); RBC Morphology Normal (NORMAL); Troponin I 0.065 ng/mL (0.00-0.10)
[2021-03-08] MEDS ORDERED: FUROSEMIDE 20 MG TABLET PO PRN (21:13)
[2021-03-08] MEDS ORDERED: ACETAMINOPHEN 325 MG TABLET PO PRN (21:13)
--- NOTE | 2021-03-08 21:19 | HP ---
Chief Complaint - Chief Complaint Date of Service: 03/08/21 Time of Service: 21:19 Chief Complaint: fever, abdominal pain, N/V, blood in urine History of Present Illness: 81-year-old male with history of mild dementia, history of CVA, hypertension, COPD, anxiety and depression return to the ER today after developing fevers and chills, abdominal pain, nausea vomiting, and blood in his urine. UA showed him to have another UTI, recently hospitalized for Klebsiella infection and treated appropriately based on sensitivities. Patient was found to be dehydrated and had an acute kidney injury as well with a creatinine bump up in the 1.8 range (baseline of 1.2). He had a white count of 16.8 with a left shift to 86%. His urine had protein, glucose, 250 of blood, positive nitrate, positive leukocyte esterase, positive bacteria. Cultures pending. Patient was given a dose of Rocephin which she has previous UTI was sensitive to. Patient will be placed in observation for IV hydration and IV antibiotic treatment. Due to recurrent UTI this quickly, will like to get a CT of his abdomen with contrast to rule out any sort of abscess formation on his kidneys will have to wait till his creatinine returns to baseline. Patient received 1 L of fluid in the ER and has 1 L going. We will continue to give an additional liter this evening and repeat lab work in the morning. Plan will be to get a CT of his abdomen if his kidneys return back to baseline, otherwise he may need to stay an additional day with ongoing fluid resuscitation Medical History (Last Reviewed 03/08/21 @ 10:03 by Nelson Barba MD) Infected cut of finger (Acute) left index finger Weight loss of more than 10% body weight (Acute) He is lost at least 15 pounds over the past 2 months and has lost about 5 pounds the last week. Abdominal mass, right lower quadrant (Acute) Hypertension (Chronic) COPD (chronic obstructive pulmonary disease) (Chronic) Anxiety (Chronic) Depression (Chronic) CAD (coronary artery disease) (Chronic) CVA (cerebral vascular accident) (Chronic) AAA (abdominal aortic aneurysm) (Chronic) Cataract cataract surgery of bilateral eyes Hernia of abdominal wall Male circumcision repaired as an adult Surgical History: Surgical History (Last Reviewed 03/08/21 @ 10:03 by Nelson Barba MD) H/O hernia repair S/P AAA repair Family History: Family History (Last Reviewed 03/08/21 @ 10:03 by Nelson Barba MD) Brother , 2 brothers AAA AAA (abdominal aortic aneurysm) Mother Old age Father Old age Social History: (Last Reviewed 03/08/21 @ 10:03 by Nelson Barba MD) Social History: usp: No Marital status: / lives independently: Yes household members: none current occupational status: retired Highest level of school completed/degree received: high school graduate Service: No Tobacco: Smoking Status: Current every day smoker tobacco type: cigarettes Smoking cigarettes per day: 20.0 Smoking packs per day: 1 Alcohol: alcohol intake: current Alcohol type: beer alcohol intake frequency: holiday/special occasion Substance Use: substance use type: does not use Dietary Habits: caffeine: Yes Review Of Systems (GEN) - Review of Systems Generalized/Overall Review: Present: No Symptoms Reported EENTM: Present: No Symptoms Reported Respiratory: Present: No Symptoms Reported Cardiac: Present: No Symptoms Reported Abdominal: Present: No Symptoms Reported Genitourinary: Present: No Symptoms Reported Musculoskeletal: Present: No Symptoms Reported Neurological: Present: No Symptoms Reported Skin: Present: No Symptoms Reported Endocrine: Present: No Symptoms Reported Additional Comments: Again patient is pleasantly demented, alert and oriented x2. Denies any symptoms at this time and states he feels much better after getting the fluid in the ER. Patient denies abdominal pain, nausea or vomiting. Unsure of how accurate his history as well as his symptoms currently are, and there is no family members in the room to discuss this with. Immunizations: IMMUNIZATION HX Immunizations Up to Date Yes History of Influenza Vaccine Yes Hx Pneumococcal Vaccination Yes Allergies/Adverse Reactions: Allergies Allergy/AdvReac Type Severity Reaction Status Date / Time No Known Allergies Allergy Verified 03/08/21 09:18 Home Medications: HOME MEDICATIONS Aspirin 81 mg PO DAILY 02/14/16 [Last Taken Unknown] Acetaminophen [Tylenol] 650 mg PO Q6H PRN tab 02/03/21 [Last Taken Unknown] lisinopril 10 mg tablet 10 mg PO DAILY #30 tab 03/02/21 [Last Taken Unknown] metoprolol tartrate 25 mg tablet 12.5 mg PO DAILY #15 tab 03/02/21 [Last Taken Unknown] pravastatin 20 mg tablet 20 mg PO HS #30 tab 03/02/21 [Last Taken Unknown] sertraline 100 mg tablet 100 mg PO DAILY #30 tab 03/02/21 [Last Taken Unknown] Furosemide 20 mg PO DAILY PRN 03/08/21 [Last Taken Unknown] Exam - Exam Vital Signs: Vital Signs - Last Taken Temp 37.6 C 03/08/21 18:50 Pulse 100 03/08/21 18:50 Resp 20 03/08/21 18:50 BP 147/63 03/08/21 18:50 Pulse Ox 96 03/08/21 18:50 Constitutional: Present: Alert, Cooperative, No distress, Elderly. Absent: Oriented x3 - X2to person and place, Lethargic, Somnolent ENT Exam: Present: hearing grossly normal Eye Exam: bilateral eye: normal inspection, EOMI Neck: Present: non-tender, supple Respiratory: Present: lungs clear, normal breath sounds, no respiratory distress Cardiovascular/Chest: Present: regular rate, rhythm, no murmur Abdomen: Present: soft, nontender, nondistended, no rebound tenderness. Absent: CVA tenderness Extremity: Present: non-tender. Absent: lower extremity edema Skin Exam: Present: normal color, warm/dry Appearance: Present: appropriate appearance, appropriate insight Eye contact: Present: cooperative, good eye contact Thoughts: Present: normal thought pattern, normal mood /affect. Absent: no apparent hallucination Diagnostic Studies: Abnormal Lab Results 03/08/21 03/08/21 03/08/21 Range/Units 09:33 10:20 10:20 WBC 16.8 H (4.0-10.5) K/mm3 RBC 4.04 L (4.7-6.0) M/mm3 Hgb 12.3 L (13.5-18.0) gm/dL Hct 37.2 L (42.0-52.0) % Plt Count 95 L (150-450) K/mm3 Neutrophils % (Manual) 86 H (42-75) % Band Neuts % (Manual) 6 H (0-2.0) % Lymphocytes % (Manual) 3 L (20-51) % Neutrophils # (Manual) 14.4 H (1.3-6.0) K/mm3 Lymphocytes # (Manual) 0.5 L (1.5-3.5) k/mm3 Carbon Dioxide 22.0 L (24-32.6) mmol/L Anion Gap 15.7 H (6.8-13.8) mmol/L BUN 30 H D (6-23) mg/dL Creatinine 1.83 H D (0.4-1.4) mg/dL Est GFR (Non-Af Amer) 38 L D (60-130) mL/min Random Glucose 152 H (70-110) mg/dL Total Bilirubin 1.4 H (0.0-1.1) mg/dL Albumin 3.2 L (3.4-5.0) gm/dl Urine Protein >=300 H (NEGATIVE) mg/dL Urine Glucose (UA) 100 H (NEGATIVE) mg/dL Urine Blood 250 H (NEGATIVE) /ul Urine Nitrate Positive H (NEGATIVE) Urine Bilirubin 3 H (NEGATIVE) mg/dl Ur Leukocyte Esterase 25 H (NEGATIVE) /ul Urine RBC >50 H (0-5) /hpf Urine WBC 10-25 H (0-5) /hpf Ur Epithelial Cells 5-10 H (0-5) /hpf Urine Bacteria 2+ H (NONE) Laboratory Results WBC 16.8 K/mm3 (4.0-10.5) H 03/08/21 10:20 RBC 4.04 M/mm3 (4.7-6.0) L 03/08/21 10:20 Hgb 12.3 gm/dL (13.5-18.0) L 03/08/21 10:20 Hct 37.2 % (42.0-52.0) L 03/08/21 10:20 MCV 92.1 fl (78-100) 03/08/21 10:20 MCH 30.4 pg (27-31) 03/08/21 10:20 MCHC 33.1 g/dl (32-36) 03/08/21 10:20 RDW 13.5 % (11.5-14.0) 03/08/21 10:20 Plt Count 95 K/mm3 (150-450) L 03/08/21 10:20 MPV 9.4 fl (8-11.3) 03/08/21 10:20 Neutrophils % (Manual) 86 % (42-75) H 03/08/21 10:20 Band Neuts % (Manual) 6 % (0-2.0) H 03/08/21 10:20 Lymphocytes % (Manual) 3 % (20-51) L 03/08/21 10:20 Monocytes % (Manual) 5 % (0-9) 03/08/21 10:20 Neutrophils # (Manual) 14.4 K/mm3 (1.3-6.0) H 03/08/21 10:20 Lymphocytes # (Manual) 0.5 k/mm3 (1.5-3.5) L 03/08/21 10:20 Monocytes # (Manual) 0.8 k/mm3 (0.0-1.0) 03/08/21 10:20 Platelet Estimate Normal (NORMAL) 03/08/21 10:20 RBC Morphology Normal (NORMAL) 03/08/21 10:20 Sodium 136 mmol/L (132-142) 03/08/21 10:20 Plasma Sodium 137 mmol/L (130-142) 03/08/21 10:20 Potassium 3.7 mmol/L (3.4-4.6) 03/08/21 10:20 Chloride 102 mmol/L (97-106) 03/08/21 10:20 Carbon Dioxide 22.0 mmol/L (24-32.6) L 03/08/21 10:20 Anion Gap 15.7 mmol/L (6.8-13.8) H 03/08/21 10:20 BUN 30 mg/dL (6-23) H D 03/08/21 10:20 Creatinine 1.83 mg/dL (0.4-1.4) H D 03/08/21 10:20 Est GFR (Non-Af Amer) 38 mL/min (60-130) L D 03/08/21 10:20 BUN/Creatinine Ratio 16.4 (9.0-21.6) 03/08/21 10:20 Random Glucose 152 mg/dL (70-110) H 03/08/21 10:20 Lactic Acid, Venous 1.6 mmol/L (0.4-2.0) 03/08/21 10:20 Calcium 8.4 mg/dL (7.9-10.9) 03/08/21 10:20 Calcium Adj for Albumin 8.7 mg/dL (8.4-10.2) 03/08/21 10:20 Total Bilirubin 1.4 mg/dL (0.0-1.1) H 03/08/21 10:20 AST 18 U/L (0-48) 03/08/21 10:20 ALT 20 U/L (19-67) 03/08/21 10:20 Alkaline Phosphatase 102 U/L (50-170) 03/08/21 10:20 Troponin I 0.065 ng/mL (0.00-0.10) 03/08/21 10:20 Total Protein 7.6 gm/dL (6.2-8.2) 03/08/21 10:20 Albumin 3.2 gm/dl (3.4-5.0) L 03/08/21 10:20 Lipase 90 U/L (73-393) 03/08/21 10:20 Urine Color Reddish brown 03/08/21 09:33 Urine Appearance Cloudy (CLEAR) 03/08/21 09:33 Urine pH 6.5 pH (5.0-7.0) 03/08/21 09:33 Ur Specific [place] 1.025 SP.GR. (1.005-1.030) 03/08/21 09:33 Urine Protein >=300 mg/dL (NEGATIVE) H 03/08/21 09:33 Urine Glucose (UA) 100 mg/dL (NEGATIVE) H 03/08/21 09:33 Urine Ketones 5 mg/dL (NEGATIVE) 03/08/21 09:33 Urine Blood 250 /ul (NEGATIVE) H 03/08/21 09:33 Urine Nitrate Positive (NEGATIVE) H 03/08/21 09:33 Urine Bilirubin 3 mg/dl (NEGATIVE) H 03/08/21 09:33 Urine Urobilinogen Normal EU/dl (NORMAL) 03/08/21 09:33 Ur Leukocyte Esterase 25 /ul (NEGATIVE) H 03/08/21 09:33 Urine RBC >50 /hpf (0-5) H 03/08/21 09:33 Urine WBC 10-25 /hpf (0-5) H 03/08/21 09:33 Ur Epithelial Cells 5-10 /hpf (0-5) H 03/08/21 09:33 Urine Bacteria 2+ (NONE) H 03/08/21 09:33 Urine Culture Comments Culture to follow 03/08/21 09:33 SARS-CoV-2 (PCR) Not detected (NotDetected) 03/08/21 10:00 Assessment/Plan - Narrative Narrative: Very pleasant 81-year-old male here for recurrent UTI, seen and treated in the ER for the same thing roughly 1 month ago. Patient at that time had Klebsiella growing on his urine with septicemia. He was on Rocephin for 4 days and then switched to Cipro 500 twice daily for an additional 2 weeks due to being bacteremic from this UTI. Blood and urine cultures pending for this visit. Patient was given a dose of Rocephin in the ER which will be continued while awaiting for speciation and sensitivities. Concern for the same bug growing in his urine as it was previously. Due to this, I would like to get an abdominal C T scan as soon as his kidney function is appropriate. Patient was febrile in the ER and also this evening, Tylenol ordered for this. The rest of his vital signs are stable and he is nontoxic on exam and in appearance. He is pleasantly demented but appears to be back to baseline from previous hospital stay and interactions with patient. We will order an additional liter of fluid to be given this evening for a total of 3 L given today. Patient is on Lasix which will be continued as to not fluid overload the patient. Restarted his home meds including lisinopril metoprolol for his hypertension. Restarted sertraline for his anxiety and depression. We will continue his baby aspirin 81 mg. Continue simvastatin for his hyperlipidemia. If his kidney functions back to baseline tomorrow and will get CT scan ordered. Patient may require additional days in the hospital if not and we will switch him from observation to inpatient at that time. We will discuss treatment options with family as soon as they are around. Otherwise we will continue this treatment plan, nurse to call questions or concerns. 1 hour spent with patient, reviewing ER records, developing treatment plan, and dictating this note. - Assessment/Plan (1) Urinary tract infection Problem: Acute (2) Leukocytosis Problem: Acute (3) Febrile Problem: Acute (4) Klebsiella sepsis Problem: Suspected (5) Confusion Problem: Acute (6) VY (acute kidney injury) Problem: Acute (7) Hypertension Problem: Chronic Qualifiers: (8) Anxiety Problem: Chronic (9) Depression Problem: Chronic Qualifiers:
[2021-03-08] MEDS: SIMVASTATIN 10 MG TABLET PO SCH (21:59)
[2021-03-09 06:51] LABS: Hematocrit 33.9 % (42.0-52.0); Hemoglobin 11.2 gm/dL (13.5-18.0); Mean Cell Volume 94.2 fl (78-100); Mean Corpuscular Hemoglobin 31.1 pg (27-31); Mean Platelet Volume 10.1 fl (8-11.3); Platelet Count 82 K/mm3 (150-450); Red Cell Distribution Width 13.4 % (11.5-14.0); White Blood Count 13.1 K/mm3 (4.0-10.5)
[2021-03-09 07:01] LABS: Albumin * 2.4 gm/dl (3.4-5.0); BUN/Creatinine Ratio 20.4 (9.0-21.6); Bilirubin, Total 0.9 mg/dL (0.0-1.1); Ca. Corrected For Albumin 8.8 mg/dL (8.4-10.2); Calcium * 7.8 mg/dL (7.9-10.9); Carbon Dioxide 21.4 mmol/L (24-32.6); Potassium 3.4 mmol/L (3.4-4.6); Total Cells Counted 100; Total Protein 6.1 gm/dL (6.2-8.2)
[2021-03-09 07:18] LABS: Band 8 % (0-2.0); Lymphocyte 5 % (20-51); Monocyte 6 % (0-9); Neutrophil 81 % (42-75); Neutrophil # 10.6 K/mm3 (1.3-6.0)
[2021-03-09 07:27] LABS: Platelet Estimate Decreased (NORMAL); RBC Morphology Normal (NORMAL)
[2021-03-09] MEDS: METOPROLOL TARTRATE 25 MG TABLET PO SCH (08:47)
[2021-03-09] MEDS: ASPIRIN 81 MG TAB.CHEW PO SCH (08:47)
[2021-03-09] MEDS: SERTRALINE HCL 100 MG TABLET PO SCH (08:47)
[2021-03-09] MEDS: LISINOPRIL 10 MG TABLET PO SCH (08:47)
--- NOTE | 2021-03-09 15:16 | PN ---
Subjective - Date and Time Seen Date: 03/09/21 Time: 10:05 Subjective Narrative: Patient is back to baseline. Feels well without concerns. Still a little confused but pleasantly so. Patient denies abdominal pain, nausea vomiting, fever or chills. Creatinine not back to baseline just yet but should continue to improve and therefore will need to be kept in the night prior to getting a CT of his abdomen with contrast. Objective - Review of Systems Generalized/Overall Review: Reports: No Symptoms Reported EENTM: Reports: No Symptoms Reported Respiratory: Reports: No Symptoms Reported Cardiac: Reports: No Symptoms Reported Abdominal: Reports: No Symptoms Reported Genitourinary Symptoms: Reports: No Symptoms Reported Musculoskeletal Complaints: Reports: No Symptoms Reported Neurological: Reports: No Symptoms Reported Skin: Reports: No Symptoms Reported Endocrine: Reports: No Symptoms Reported - Vitals Vitals: Last Vital Signs Temp 36.7 C 03/09/21 14:30 Pulse 90 03/09/21 14:30 Resp 20 03/09/21 14:30 BP 141/60 03/09/21 14:30 Pulse Ox 93 03/09/21 14:30 - Abnormal Lab Findings Abnormal Lab Findings: Abnormal Lab Results 03/09/21 03/09/21 Range/Units 06:46 06:46 WBC 13.1 H D (4.0-10.5) K/mm3 RBC 3.60 L (4.7-6.0) M/mm3 Hgb 11.2 L (13.5-18.0) gm/dL Hct 33.9 L (42.0-52.0) % MCH 31.1 H (27-31) pg Plt Count 82 L (150-450) K/mm3 Neutrophils % (Manual) 81 H (42-75) % Band Neuts % (Manual) 8 H (0-2.0) % Lymphocytes % (Manual) 5 L (20-51) % Neutrophils # (Manual) 10.6 H (1.3-6.0) K/mm3 Lymphocytes # (Manual) 0.7 L (1.5-3.5) k/mm3 Platelet Estimate Decreased L (NORMAL) Carbon Dioxide 21.4 L (24-32.6) mmol/L Anion Gap 14.0 H (6.8-13.8) mmol/L BUN 31 H (6-23) mg/dL Creatinine 1.52 H (0.4-1.4) mg/dL Est GFR (Non-Af Amer) 47 L D (60-130) mL/min Random Glucose 116 H (70-110) mg/dL Calcium 7.8 L (7.9-10.9) mg/dL ALT 12 L (19-67) U/L Total Protein 6.1 L (6.2-8.2) gm/dL Albumin 2.4 L (3.4-5.0) gm/dl - Exam Constitutional: Present: Alert, Cooperative, No distress, Elderly. Absent: Oriented x3 - X2 Respiratory: Present: lungs clear, normal breath sounds Cardiovascular/Chest: Present: regular rate, rhythm, no murmur Abdomen: Present: soft, nontender, nondistended. Absent: tender, guarding, rigidity, rebound tenderness, CVA tenderness, suprapubic tenderness Extremity: Present: non-tender, no pedal edema Skin Exam: Present: normal color, warm/dry Appearance: Present: appropriate appearance, impaired insight Eye contact: Present: cooperative, good eye contact Thoughts: Present: normal thought pattern, normal mood /affect Assessment/Plan Plan Narrative: Patient is doing well, did have a fever overnight but responded to Tylenol. Otherwise he has no concerns or complaints. Again patient's history is limited due to being mildly demented but he is pleasant and feels well. His creatinine and GFR improved but still above baseline and still mildly elevated so he will have to wait until tomorrow for CT of his abdomen with contrast. Waiting for his cultures to speciate with sensitivities but appears to respond well to Ro cephin so we will continue this. Patient is drinking plenty of water and so no IV fluids needed at this time. We will repeat BMP and CBC in the morning. Patient's daughter would like to look for an assisted living home for him as he is unable to care for himself anymore. PT and OT ordered for evaluation. Otherwise continue current treatment plan and will adjust once sensitivities return. Again concern for possible perinephric abscess which could be causing these recurrent UTIs as he was treated for a total of 18 days with antibiotics that the bacteria was sensitive to with his previous day 1 month ago. Nurse will call with questions or concerns. - Problems/Diagnosis (1) Urinary tract infection Problem: Acute (2) Leukocytosis Problem: Acute (3) Febrile Problem: Acute (4) Klebsiella sepsis Problem: Suspected (5) Confusion Problem: Acute (6) VY (acute kidney injury) Problem: Acute (7) Hypertension Problem: Chronic Qualifiers: (8) Anxiety Problem: Chronic (9) Depression Problem: Chronic Qualifiers:
[2021-03-09] MEDS: SIMVASTATIN 10 MG TABLET PO SCH (21:38)
[2021-03-10 09:07] LABS: Hematocrit 34.7 % (42.0-52.0); Hemoglobin 11.4 gm/dL (13.5-18.0); Mean Cell Volume 92.3 fl (78-100); Mean Corpuscular Hemoglobin 30.3 pg (27-31); Mean Corpuscular Hgb Conc 32.9 g/dl (32-36); Mean Platelet Volume 9.4 fl (8-11.3); Neutrophil # 8.6 K/mm3 (1.3-6.0); Neutrophil % 83.3 % (42-75.0); Platelet Count 103 K/mm3 (150-450); Red Blood Count 3.76 M/mm3 (4.7-6.0); Red Cell Distribution Width 13.3 % (11.5-14.0); White Blood Count 10.3 K/mm3 (4.0-10.5)
[2021-03-10 09:13] LABS: Anion Gap 12.9 mmol/L (6.8-13.8); BUN/Creatinine Ratio 22.9 (9.0-21.6); Calcium * 7.8 mg/dL (7.9-10.9); Carbon Dioxide 21.6 mmol/L (24-32.6); Estimated Creat Clear 43.4; Potassium 3.5 mmol/L (3.4-4.6)
[2021-03-10] MEDS: CEFTAZIDIME 1 GM in DEXTROSE 5 % IN WATER 100 ML IV SCH ×6 (10:00→23:44)
[2021-03-10] MEDS: ASPIRIN 81 MG TAB.CHEW PO SCH (10:16)
[2021-03-10] MEDS: SERTRALINE HCL 100 MG TABLET PO SCH (10:16)
[2021-03-10] MEDS: METOPROLOL TARTRATE 25 MG TABLET PO SCH (10:16)
[2021-03-10] MEDS: LISINOPRIL 10 MG TABLET PO SCH (10:17)
[2021-03-10] MEDS ORDERED: DIATRIZOATE MEGLUMINE, SODIUM 30 ML BTL PO ONE (12:06)
--- NOTE | 2021-03-10 15:44 | PN ---
Subjective - Date and Time Seen Date: 03/10/21 Time: 15:41 Subjective Narrative: Patient is resting comfortably. CT scan showed pyelonephritis in the right but no perinephric abscess. His vital signs been stable and he is afebrile. He is very pleasant. White count downtrending and back into normal range today. Sensitivities came back, switched him to ceftazidime. Objective - Review of Systems Generalized/Overall Review: Reports: No Symptoms Reported EENTM: Reports: No Symptoms Reported Respiratory: Reports: No Symptoms Reported Cardiac: Reports: No Symptoms Reported Abdominal: Reports: No Symptoms Reported Genitourinary Symptoms: Reports: No Symptoms Reported Neurological: Reports: No Symptoms Reported Skin: Reports: No Symptoms Reported Endocrine: Reports: No Symptoms Reported - Vitals Vitals: Last Vital Signs Temp 36.6 C 03/10/21 14:53 Pulse 65 03/10/21 14:53 Resp 18 03/10/21 14:53 BP 135/66 03/10/21 14:53 Pulse Ox 97 03/10/21 14:53 - Abnormal Lab Findings Abnormal Lab Findings: Abnormal Lab Results 03/10/21 03/10/21 Range/Units 08:45 08:45 RBC 3.76 L (4.7-6.0) M/mm3 Hgb 11.4 L (13.5-18.0) gm/dL Hct 34.7 L (42.0-52.0) % Plt Count 103 L (150-450) K/mm3 Immature Gran % (Auto) 0.90 H (0.001-0.429) % Immature Gran # (Auto) 0.09 H (0.000-0.0310) K/mm3 Neutrophils % 83.3 H (42-75.0) % Lymphocytes % 5.4 L (20-51) % Monocytes % 10.1 H (0.0-9) % Neutrophils # 8.6 H (1.3-6.0) K/mm3 Lymphocytes # 0.55 L (1.5-3.5) k/mm3 Carbon Dioxide 21.6 L (24-32.6) mmol/L BUN 33 H (6-23) mg/dL Creatinine 1.44 H (0.4-1.4) mg/dL Est GFR (Non-Af Amer) 50 L (60-130) mL/min BUN/Creatinine Ratio 22.9 H (9.0-21.6) Random Glucose 166 H D (70-110) mg/dL Calcium 7.8 L (7.9-10.9) mg/dL - Exam Constitutional: Present: Alert, Cooperative, Elderly. Absent: Oriented x3 - [id number] and place Respiratory: Present: lungs clear, normal breath sounds Cardiovascular/Chest: Present: regular rate, rhythm, no murmur Abdomen: Present: soft, nontender, nondistended. Absent: CVA tenderness, suprapubic tenderness Skin Exam: Present: normal color, warm/dry Appearance: Present: appropriate appearance, impaired insight Eye contact: Present: cooperative, good eye contact Thoughts: Present: normal thought pattern, normal mood /affect Assessment/Plan Plan Narrative: Overall patient looks good today. CT scan ordered this morning and came back showing right-sided pyelonephritis but no abscess. Sensitivities came back showing intermediate treatment coverage with ceftriaxone so patient was switched to ceftazidime which it was sensitive to. We will continue IV antibiotics until discharge. Awaiting placement to the [facility] in 3 days. Continue current treatment plan otherwise. Repeat lab work in the morning. Nurse to call questions or concerns. - Problems/Diagnosis (1) Urinary tract infection Problem: Acute (2) Leukocytosis Problem: Acute (3) Febrile Problem: Acute (4) Klebsiella sepsis Problem: Suspected (5) Confusion Problem: Acute (6) VY (acute kidney injury) Problem: Acute (7) Hypertension Problem: Chronic Qualifiers: (8) Anxiety Problem: Chronic (9) Depression Problem: Chronic Qualifiers:
[2021-03-10] MEDS: SIMVASTATIN 10 MG TABLET PO SCH (21:18)
[2021-03-11 06:51] LABS: Hematocrit 33.5 % (42.0-52.0); Mean Cell Volume 92.3 fl (78-100); Mean Corpuscular Hemoglobin 30.3 pg (27-31); Mean Corpuscular Hgb Conc 32.8 g/dl (32-36); Mean Platelet Volume 9.4 fl (8-11.3); Neutrophil # 6.3 K/mm3 (1.3-6.0); Neutrophil % 75.9 % (42-75.0); Platelet Count 99 K/mm3 (150-450); Red Blood Count 3.63 M/mm3 (4.7-6.0); Red Cell Distribution Width 13.2 % (11.5-14.0); White Blood Count 8.3 K/mm3 (4.0-10.5)
[2021-03-11 07:02] LABS: BUN/Creatinine Ratio 21.4 (9.0-21.6); Calcium * 7.9 mg/dL (7.9-10.9); Carbon Dioxide 23.5 mmol/L (24-32.6); Estimated Creat Clear 47.7; Potassium 3.5 mmol/L (3.4-4.6)
[2021-03-11] MEDS: CEFTAZIDIME 1 GM in DEXTROSE 5 % IN WATER 100 ML IV SCH ×4 (08:48→16:55)
[2021-03-11] MEDS: SERTRALINE HCL 100 MG TABLET PO SCH (08:48)
[2021-03-11] MEDS: ASPIRIN 81 MG TAB.CHEW PO SCH (08:48)
[2021-03-11] MEDS: METOPROLOL TARTRATE 25 MG TABLET PO SCH (08:51)
[2021-03-11] MEDS: LISINOPRIL 10 MG TABLET PO SCH (08:52)
--- NOTE | 2021-03-11 12:45 | PN ---
Subjective - Date and Time Seen Date: 03/11/21 Time: 11:00 Subjective Narrative: Juventino is resting. No concerns by patient or staff. No fever, chills, nausea, or vomiting. Creatinine has normalized. Objective - Vitals Vitals: Last Vital Signs Temp 36.7 C 03/11/21 08:58 Pulse 65 03/11/21 10:11 Resp 18 03/11/21 08:58 BP 142/60 03/11/21 08:58 Pulse Ox 97 03/11/21 08:58 - Abnormal Lab Findings Abnormal Lab Findings: Abnormal Lab Results 03/11/21 03/11/21 Range/Units 06:25 06:25 RBC 3.63 L (4.7-6.0) M/mm3 Hgb 11.0 L (13.5-18.0) gm/dL Hct 33.5 L (42.0-52.0) % Plt Count 99 L (150-450) K/mm3 Immature Gran % (Auto) 0.50 H (0.001-0.429) % Immature Gran # (Auto) 0.04 H (0.000-0.0310) K/mm3 Neutrophils % 75.9 H (42-75.0) % Lymphocytes % 10.3 L (20-51) % Monocytes % 11.8 H (0.0-9) % Neutrophils # 6.3 H (1.3-6.0) K/mm3 Lymphocytes # 0.86 L (1.5-3.5) k/mm3 Carbon Dioxide 23.5 L (24-32.6) mmol/L BUN 28 H (6-23) mg/dL Est GFR (Non-Af Amer) 56 L (60-130) mL/min - Exam Constitutional: Present: Alert, Oriented x3, Cooperative Respiratory: Present: lungs clear, normal breath sounds Cardiovascular/Chest: Present: regular rate, rhythm, no murmur Abdomen: Present: Normal bowel sounds, soft, nontender, nondistended Skin Exam: Present: normal color, warm/dry, no cyanosis Assessment/Plan Plan Narrative: Renal function has improved to normal. Continue antibiotics. Planning for discharge Saturday to [facility] for strengthening. - Problems/Diagnosis (1) Urinary tract infection Problem: Acute Qualifiers: Urinary tract infection type: acute pyelonephritis Qualified Code(s): N10 - Acute pyelonephritis (2) VY (acute kidney injury) Problem: Resolved (3) Generalized weakness Problem: Acute
[2021-03-11] MEDS: SIMVASTATIN 10 MG TABLET PO SCH (20:24)
[2021-03-12] MEDS: CEFTAZIDIME 1 GM in DEXTROSE 5 % IN WATER 100 ML IV SCH ×6 (00:16→17:10)
[2021-03-12] MEDS: SERTRALINE HCL 100 MG TABLET PO SCH (08:46)
[2021-03-12] MEDS: METOPROLOL TARTRATE 25 MG TABLET PO SCH (08:46)
[2021-03-12] MEDS: LISINOPRIL 10 MG TABLET PO SCH (08:46)
[2021-03-12] MEDS: ASPIRIN 81 MG TAB.CHEW PO SCH (08:46)
[2021-03-12] MEDS: SIMVASTATIN 10 MG TABLET PO SCH (21:11)
--- NOTE | 2021-03-12 22:41 | PN ---
Subjective - Date and Time Seen Date: 03/12/21 Time: 11:30 Subjective Narrative: Juventino reports feeling great and has no concerns. Renal function normalized yesterday. No changes needed today. Expecting discharge for SNF tomorrow. Objective - Vitals Vitals: Last Vital Signs Temp 36.4 C 03/12/21 19:45 Pulse 78 03/12/21 19:45 Resp 20 03/12/21 19:45 BP 109/55 03/12/21 19:45 Pulse Ox 96 03/12/21 19:45 - Exam Constitutional: Present: Alert, Oriented x3, Cooperative ENT Exam: Present: hearing grossly normal Respiratory: Present: lungs clear, normal breath sounds Cardiovascular/Chest: Present: regular rate, rhythm, no murmur Abdomen: Present: Normal bowel sounds, soft, nontender, nondistended Skin Exam: Present: normal color, warm/dry, no cyanosis Assessment/Plan Plan Narrative: Clinically doing well. No concerns today. No changes made. Planning to discharge to SNF tomorrow. - Problems/Diagnosis (1) Urinary tract infection Problem: Acute Qualifiers: Urinary tract infection type: acute pyelonephritis Qualified Code(s): N10 - Acute pyelonephritis (2) VY (acute kidney injury) Problem: Resolved (3) Generalized weakness Problem: Acute
[2021-03-13] MEDS: CEFTAZIDIME 1 GM in DEXTROSE 5 % IN WATER 100 ML IV SCH ×4 (01:57→09:14)
[2021-03-13] MEDS: SERTRALINE HCL 100 MG TABLET PO SCH (09:15)
[2021-03-13] MEDS: METOPROLOL TARTRATE 25 MG TABLET PO SCH (09:15)
[2021-03-13] MEDS: ASPIRIN 81 MG TAB.CHEW PO SCH (09:15)
[2021-03-13] MEDS: LISINOPRIL 10 MG TABLET PO SCH (09:15)
--- NOTE | 2021-03-13 09:42 | DS ---
(1) Urinary tract infection Problem: Acute Qualifiers: Urinary tract infection type: acute pyelonephritis Qualified Code(s): N10 - Acute pyelonephritis (2) Leukocytosis Problem: Acute (3) Febrile Problem: Acute (4) Klebsiella sepsis Problem: Suspected (5) Confusion Problem: Acute (6) VY (acute kidney injury) Problem: Resolved (7) Hypertension Problem: Chronic Qualifiers: (8) Anxiety Problem: Chronic (9) Depression Problem: Chronic Qualifiers: Date of Discharge:: 03/13/21 Hospital Course: 81-year-old male here for pyelonephritis, right-sided. Patient with history of previous UTI 1 month earlier for the same bug treated close to 18 days who returned to the hospital after developing acute abdominal pain, nausea vomiting, fever and chills. Urine growing out same bug. Patient was initially started on Rocephin but once sensitivities came out, switched to ceftazidime. Patient had 4 days of this medication and will be discharged to the [facility] facility with an additional 5 days of Cipro which is sensitive to. Patient will be treated in total for 10 days and should do well. Patient was dehydrated when he came in with an acute kidney injury which resolved. Kidney function back to baseline. CT scan was obtained which did confirm pyelonephritis but no perinephric abscess which we are worried about. Patient feels well now and his vital signs been stable since being here. He has been afebrile for last 4 days. Patient is mildly demented but very pleasant and ready for discharge. No other changes to his chronic medications, they were all resumed prior to discharge. Patient to follow-up with me in 2 weeks. The senior living can call with any questions or concerns he may have. 45 minutes spent with patient today, planning treatment plan, and dictating discharge notes. Procedures Performed: none Results and Findings: Pending Mircobiology Results 03/08/21 10:39 Blood Blood Culture - Preliminary NO GROWTH AFTER 48 HOURS 03/08/21 10:20 Blood Blood Culture - Preliminary NO GROWTH AFTER 48 HOURS Lab Pending Results 03/08/21 09:33: Urine Color Reddish brown, Urine Appearance Cloudy, Urine pH 6.5, Ur Specific [place] 1.025, Urine Protein >=300 H, Urine Glucose (UA) 100 H, Urine Ketones 5, Urine Blood 250 H, Urine Nitrate Positive H, Urine Bilirubin 3 H, Urine Urobilinogen Normal, Ur Leukocyte Esterase 25 H, Urine RBC >50 H, Urine WBC 10-25 H, Ur Epithelial Cells 5-10 H, Urine Bacteria 2+ H, Urine Culture Comments Culture to follow 03/08/21 10:00: SARS-CoV-2 (PCR) Not detected 03/08/21 10:20: WBC 16.8 H, RBC 4.04 L, Hgb 12.3 L, Hct 37.2 L, MCV 92.1, MCH 30.4, MCHC 33.1, RDW 13.5, Plt Count 95 L, MPV 9.4, Neutrophils % (Manual) 86 H, Band Neuts % (Manual) 6 H, Lymphocytes % (Manual) 3 L, Monocytes % (Manual) 5, Neutrophils # (Manual) 14.4 H, Lymphocytes # (Manual) 0.5 L, Monocytes # (Manual) 0.8, Platelet Estimate Normal, RBC Morphology Normal 03/08/21 10:20: Sodium 136, Plasma Sodium 137, Potassium 3.7, Chloride 102, Carbon Dioxide 22.0 L, Anion Gap 15.7 H, BUN 30 H D, Creatinine 1.83 H D, Est GFR (Non-Af Amer) 38 L D, BUN/Creatinine Ratio 16.4, Random Glucose 152 H, Calcium 8.4, Calcium Adj for Albumin 8.7, Total Bilirubin 1.4 H, AST 18, ALT 20, Alkaline Phosphatase 102, Troponin I 0.065, Total Protein 7.6, Albumin 3.2 L, Lipase 90 03/08/21 10:20: Lactic Acid, Venous 1.6 03/09/21 06:46: WBC 13.1 H D, RBC 3.60 L, Hgb 11.2 L, Hct 33.9 L, MCV 94.2, MCH 31.1 H, MCHC 33.0, RDW 13.4, Plt Count 82 L, MPV 10.1, Neutrophils % (Manual) 81 H, Band Neuts % (Manual) 8 H, Lymphocytes % (Manual) 5 L, Monocytes % (Manual) 6, Neutrophils # (Manual) 10.6 H, Lymphocytes # (Manual) 0.7 L, Monocytes # (Manual) 0.8, Platelet Estimate Decreased L, RBC Morphology Normal 03/09/21 06:46: Sodium 136, Plasma Sodium 136, Potassium 3.4, Chloride 104, Carbon Dioxide 21.4 L, Anion Gap 14.0 H, BUN 31 H, Creatinine 1.52 H, Est GFR (Non-Af Amer) 47 L D, BUN/Creatinine Ratio 20.4, Random Glucose 116 H, Calcium 7.8 L, Calcium Adj for Albumin 8.8, Total Bilirubin 0.9, AST 13, ALT 12 L, Alkaline Phosphatase 82, Total Protein 6.1 L, Albumin 2.4 L 03/10/21 08:45: WBC 10.3 D, RBC 3.76 L, Hgb 11.4 L, Hct 34.7 L, MCV 92.3, MCH 30.3, MCHC 32.9, RDW 13.3, Plt Count 103 L, MPV 9.4, Immature Gran % (Auto) 0.90 H, Immature Gran # (Auto) 0.09 H, Neutrophils % 83.3 H, Lymphocytes % 5.4 L, Monocytes % 10.1 H, Eosinophils % 0.2, Basophils % 0.1, Nucleated RBC % 0.0, Neutrophils # 8.6 H, Lymphocytes # 0.55 L, Monocytes # 1.0, Eosinophils # 0.0, Absolute Basophils 0.0 03/10/21 08:45: Sodium 133, Plasma Sodium 134, Potassium 3.5, Chloride 102, Carbon Dioxide 21.6 L, Anion Gap 12.9, BUN 33 H, Creatinine 1.44 H, Est GFR (Non-Af Amer) 50 L, BUN/Creatinine Ratio 22.9 H, Random Glucose 166 H D, Calcium 7.8 L 03/11/21 06:25: WBC 8.3, RBC 3.63 L, Hgb 11.0 L, Hct 33.5 L, MCV 92.3, MCH 30.3, MCHC 32.8, RDW 13.2, Plt Count 99 L, MPV 9.4, Immature Gran % (Auto) 0.50 H, Immature Gran # (Auto) 0.04 H, Neutrophils % 75.9 H, Lymphocytes % 10.3 L, Monocytes % 11.8 H, Eosinophils % 1.3, Basophils % 0.2, Nucleated RBC % 0.0, Neutrophils # 6.3 H, Lymphocytes # 0.86 L, Monocytes # 1.0, Eosinophils # 0.1, Absolute Basophils 0.0 03/11/21 06:25: Sodium 136, Plasma Sodium 136, Potassium 3.5, Chloride 103, Carbon Dioxide 23.5 L, Anion Gap 13.0, BUN 28 H, Creatinine 1.31, Est GFR (Non- Af Amer) 56 L, BUN/Creatinine Ratio 21.4, Random Glucose 97 D, Calcium 7.9 Discharge Location: [facility] Disposition: SNF Condition: Fair Level of Care: SNF Discharge Activity: Activity as tolerated Discharge Diet: General/regular food [facility] Therapy: Physical Therapy, Occupation Therapy, Speech Therapy Referrals: Kamar Arenas DO [Primary Care Provider] - Two Weeks Additional Patient Instructions (free text): [facility]. PT/OT/ST to eval and treat. Prescriptions (Any new or edited meds): Ciprofloxacin HCl [Cipro] 500 mg PO BID #10 tab Transmission Status: Received by [facility] Complete Home Medications List: Complete Home Medication List: Aspirin 81 mg PO DAILY 02/14/16 Acetaminophen [Tylenol] 650 mg PO Q6H PRN tab 02/03/21 lisinopril 10 mg tablet 10 mg PO DAILY #30 tab 03/02/21 metoprolol tartrate 25 mg tablet 12.5 mg PO DAILY #15 tab 03/02/21 pravastatin 20 mg tablet 20 mg PO HS #30 tab 03/02/21 sertraline 100 mg tablet 100 mg PO DAILY #30 tab 03/02/21 Furosemide 20 mg PO DAILY PRN 03/08/21 Ciprofloxacin HCl [Cipro] 500 mg PO BID #10 tab 03/13/21 Forms: Patient Portal Registration
[2021-03-13] MEDS ORDERED: CIPROFLOXACIN HCL 500 MG TABLET PO SCH (09:45)
[2021-03-13 10:20] VITALS: BP 130/48
== END 2021-03-13 14:20 | DRG 872 ==
LOC: MS 09:07 → ER 09:07 → MS 15:21
PROVIDERS: ADMIT Family Medicine; ATTEND Family Medicine
DX: F17.210 Nicotine dependence, cigarettes, uncomplicated; Z86.73 Personal history of transient ischemic attack (TIA), and cerebral infarction without residual deficits; N17.9 Acute kidney failure, unspecified; N10 Acute pyelonephritis; A41.89 Other specified sepsis; F41.8 Other specified anxiety disorders; B96.1 Klebsiella pneumoniae [K. pneumoniae] as the cause of diseases classified elsewhere; Z87.440 Personal history of urinary (tract) infections; E86.0 Dehydration; I10 Essential (primary) hypertension; J44.9 Chronic obstructive pulmonary disease, unspecified; F03.90 Unspecified dementia, unspecified severity, without behavioral disturbance, psychotic disturbance, mood disturbance, and anxiety